=== PATIENT | male | born 1970 | race Caucasian/White ===

== ENCOUNTER 2020-01-14 21:23 | Inpatient (IN) | payer MEDICAID, OTHER ==
--- NOTE | 2020-01-14 22:53 | ED ---
Psych HPI - General Chief Complaint: Psychiatric Symptoms Stated Complaint: Mental Health Source: patient Mode of arrival: ambulatory - History of Present Illness Initial Comments: Angel a 49-year-old male who reports a history of bipolar. Patient reports that due to some changes in his life he no longer has primary care or psychiatric care states he ran out of his medications 2 weeks ago and has been unmedicated. Patient states that he feels that he is in a manic state. He states his thoughts are racing and he hasn't slept for 6 days. Patient does admit to drinking alcohol in an attempt to self medicate. Patient states he will hospital today because he knows he needs to be back on his medications. - Related Data Allergies Allergy/AdvReac Type Severity Reaction Status Date / Time No Known Allergies Allergy Verified 01/14/20 21:31 Review of Systems ROS Statement: Those systems with pertinent positive or pertinent negative responses have been documented in the HPI. ROS Other: All systems not noted in ROS Statement are negative. Past Medical History Past Medical History: No Reported History History of Any Multi-Drug Resistant Organisms: None Reported Past Surgical History: No Surgical Hx Reported Past Psychological History: Anxiety, Depression Smoking Status: Current every day smoker Past Alcohol Use History: Abuse, Daily General Exam - General Exam Comments Initial Comments: Physical Exam GENERAL: Patient is well-developed and well-nourished. Patient is nontoxic and well-hydrated and is in no distress. HENT: Normocephalic, Atraumatic. EYES: PERRL, EOMI PULMONARY: Unlabored respirations. CARDIOVASCULAR: RRR Warm and well perfused extremities ABDOMEN: Non-distended SKIN: No rashes or bruising : Deferred NEUROLOGIC: Alert and oriented Normal speech Normal gait MUSCULOSKELETAL: Moving all extremities with no apparent injury PSYCHIATRIC: Acute alejandro, no suicidal or homicidal ideations Limitations: no limitations Course Vital Signs 01/14/20 01/15/20 21:31 06:02 Temperature 98.9 F Pulse Rate 76 84 Respiratory 16 17 Rate Blood Pressure 116/78 142/80 O2 Sat by Pulse 96 98 Oximetry Medical Decision Making - Medical Decision Making Patient was seen and evaluated patient was slightly intoxicated but admitted to having a manic episode Upon sobriety patient was evaluated by the emergency psychiatric services nurse who agrees the patient requires inpatient admission as he will not safety plan. Labs were ordered for medical clearance Patient be transferred to psychiatric facility - Lab Data Result diagrams: 01/15/20 02:47 01/15/20 02:47 Lab Results 01/15/20 01/15/20 01/15/20 Range/Units 00:04 02:47 02:47 WBC 5.8 (3.8-10.6) k/uL RBC 4.69 (4.30-5.90) m/uL Hgb 14.9 (13.0-17.5) gm/dL Hct 45.4 (39.0-53.0) % MCV 96.7 (80.0-100.0) fL MCH 31.7 (25.0-35.0) pg MCHC 32.7 (31.0-37.0) g/dL RDW 13.2 (11.5-15.5) % Plt Count 291 (150-450) k/uL Neutrophils % 49 % Lymphocytes % 38 % Monocytes % 5 % Eosinophils % 5 % Basophils % 2 % Neutrophils # 2.8 (1.3-7.7) k/uL Lymphocytes # 2.2 (1.0-4.8) k/uL Monocytes # 0.3 (0-1.0) k/uL Eosinophils # 0.3 (0-0.7) k/uL Basophils # 0.1 (0-0.2) k/uL Sodium 133 L (137-145) mmol/L Potassium 3.8 (3.5-5.1) mmol/L Chloride 102 (98-107) mmol/L Carbon Dioxide 21 L (22-30) mmol/L Anion Gap 10 mmol/L BUN 17 (9-20) mg/dL Creatinine 1.05 (0.66-1.25) mg/dL Est GFR (CKD-EPI)AfAm >90 (>60 ml/min/1.73 sqM) Est GFR (CKD-EPI)NonAf 84 (>60 ml/min/1.73 sqM) Glucose 141 H (74-99) mg/dL Calcium 9.0 (8.4-10.2) mg/dL Total Bilirubin 0.6 (0.2-1.3) mg/dL AST 117 H (17-59) U/L ALT 162 H (4-49) U/L Alkaline Phosphatase 111 (38-126) U/L Total Protein 7.4 (6.3-8.2) g/dL Albumin 4.6 (3.5-5.0) g/dL Salicylates <1.0 mg/dL Urine Opiates Screen Not Detected (NotDetected) Ur Oxycodone Screen Not Detected (NotDetected) Urine Methadone Screen Not Detected (NotDetected) Ur Propoxyphene Screen Not Detected (NotDetected) Acetaminophen <10.0 ug/mL Ur Barbiturates Screen Not Detected (NotDetected) U Tricyclic Antidepress Not Detected (NotDetected) Ur Phencyclidine Scrn Not Detected (NotDetected) Ur Amphetamines Screen Not Detected (NotDetected) U Methamphetamines Scrn Not Detected (NotDetected) U Benzodiazepines Scrn Not Detected (NotDetected) Urine Cocaine Screen Not Detected (NotDetected) U Marijuana (THC) Screen Not Detected (NotDetected) Serum Alcohol <10 mg/dL Disposition Clinical Impression: Acute psychosis, Bipolar disorder Disposition: TRANSFER TO PSYCH HOSP/UNIT Condition: Serious Is patient prescribed a controlled substance at d/c from ED?: No Referrals: None,Stated [Primary Care Provider] - 1-2 days
[2020-01-15 00:31] LABS: Amphetamine Screen,Urine Not Detected (NotDetected); Barbiturate Screen,Urine Not Detected (NotDetected); Benzodiazepines Screen,Urine Not Detected (NotDetected); Cocaine Screen,Urine Not Detected (NotDetected); Methadone Screen, Urine Not Detected (NotDetected); Opiate Screen,Urine Not Detected (NotDetected); Oxycodone Screen, Urine Not Detected (NotDetected); Phencyclidine Screen,Urine Not Detected (NotDetected); Tricyclic Antidepressant,Urine Not Detected (NotDetected); Urn Cannabinoid Scrn Not Detected (NotDetected)
[2020-01-15] MEDS ORDERED: LORazepam 1 MG TAB PO STA ×2 (02:33→07:12)
[2020-01-15 02:55] LABS: Basophils # (A) 0.1 k/uL (0-0.2); Basophils % (A) 2 %; Eosinophils # (A) 0.3 k/uL (0-0.7); Eosinophils % (A) 5 %; HCT 45.4 % (39.0-53.0); HGB 14.9 gm/dL (13.0-17.5); Lymphocytes # (A) 2.2 k/uL (1.0-4.8); Lymphocytes % (A) 38 %; MCH 31.7 pg (25.0-35.0); MCHC 32.7 g/dL (31.0-37.0); MCV 96.7 fL (80.0-100.0); Mean Platelet Volume 6.8; Monocytes # (A) 0.3 k/uL (0-1.0); Monocytes % (A) 5 %; Neutrophils # (A) 2.8 k/uL (1.3-7.7); Neutrophils % (A) 49 %; Platelet Count 291 k/uL (150-450); RBC 4.69 m/uL (4.30-5.90); RDW 13.2 % (11.5-15.5); WBC 5.8 k/uL (3.8-10.6)
[2020-01-15 03:04] LABS: ALT 162 U/L (4-49); AST 117 U/L (17-59); Acetaminophen <10.0 ug/mL; African American GFR (CKD) >90 (>60 ml/min/1.73 sqM); Albumin 4.6 g/dL (3.5-5.0); Alcohol <10 mg/dL; Alkaline Phosphatase 111 U/L (38-126); Anion Gap 10 mmol/L; Blood Urea Nitrogen 17 mg/dL (9-20); Carbon Dioxide 21 mmol/L (22-30); Chloride 102 mmol/L (98-107); Glucose 141 mg/dL (74-99); Non-African American GFR(CKD) 84 (>60 ml/min/1.73 sqM); Potassium 3.8 mmol/L (3.5-5.1); Salicylate <1.0 mg/dL; Sodium 133 mmol/L (137-145); Total Bilirubin 0.6 mg/dL (0.2-1.3); Total Protein 7.4 g/dL (6.3-8.2)
[2020-01-15] MEDS ORDERED: MAG HYDROX/AL HYDROX/SIMETH 30 ML CUP PO PRN (14:17)
[2020-01-15] MEDS ORDERED: MAGNESIUM HYDROXIDE 2,400 MG/10 ML CUP PO PRN (14:17)
[2020-01-15] MEDS ORDERED: ZIPRASIDONE 20 MG VIAL IM PRN (14:17)
[2020-01-15] MEDS ORDERED: ACETAMINOPHEN TAB 325 MG TAB PO PRN (14:17)
[2020-01-15] MEDS: LORazepam 1 MG TAB PO PRN (15:11)
--- NOTE | 2020-01-15 16:31 | P.HPMEDMHU ---
History of Present Illness H&P Date: 01/15/20 Chief Complaint: Medical Co-management 49-year-old overweight man with past medical history of polysubstance abuse, bipolar disorder presented with depression, anxiety. He was admitted to the mental health unit for titration of medication; medicine was consulted by psychiatry for medical management. Patient's review of systems was positive for anxiety/depression. Negative for fevers, chills, nausea, vomiting, chest pain, palpitations, significant, shortness of breath, abdominal pain, dysuria, dyschezia, nocturia, hematochezia, melena, numbness/weakness, visual changes, hearing changes. Patient is hemodynamically stable, labs were reviewed and were unremarkable ex cept for mild hyponatremia. Review of Systems All Systems reviewed and pertinent positives and negatives noted in HPI, all other symptoms are negative Past Medical History Past Medical History: No Reported History History of Any Multi-Drug Resistant Organisms: None Reported Past Surgical History: No Surgical Hx Reported Past Psychological History: Anxiety, Depression Smoking Status: Current every day smoker Past Alcohol Use History: Abuse, Daily Medications and Allergies Home Medications Medication Instructions Recorded Confirmed Type Escitalopram [Lexapro] 10 mg PO DAILY 01/15/20 01/15/20 History Lurasidone [Latuda] 40 mg PO DAILY 01/15/20 01/15/20 History OLANZapine [ZyPREXA] 5 mg PO HS 01/15/20 01/15/20 History buPROPion HCL [Wellbutrin XL] 300 mg PO DAILY 01/15/20 01/15/20 History Allergies Allergy/AdvReac Type Severity Reaction Status Date / Time No Known Allergies Allergy Verified 01/15/20 11:03 Physical Exam Osteopathic Statement: *. No significant issues noted on an osteopathic structural exam other than those noted in the History and Physical/Consult. Vitals: Vital Signs Temp Pulse Resp BP BP Pulse Ox 01/15/20 15:11 97.7 F 14 132/102 94 L 01/15/20 06:02 84 17 142/80 98 01/14/20 21:31 98.9 F 76 16 116/78 96 Gen: awake, alert HEENT: normocephalic, atraumatic, good hearing acuity, moist mucous membranes Resp: CTAB, good air exchange, no accessory muscle use, no wheezes, crackles, rhonchi CVS: good distal perfusion x 4, RRR, no murmurs, clicks, gallops GI: soft, NTTP, ND : no SPT, no CVAT, hopper catheter [IS/NOT] present MSK: no pitting edema, no clubbing Neuro: non-focal, no sensory deficits, appropriate tone Psych: cooperative, euthymic mood Cranial Nerve Examination - Cranial Nerves Cranial Nerve II- Optic: Intact Cranial Nerve III- Oculomotor: Intact Cranial Nerve IV- Trochlear: Intact Cranial Nerve V- Trigeminal: Intact Cranial Nerve - Abducens: Intact Cranial Nerve VII- Facial: Intact Cranial Nerve VIII- Auditory: Intact Cranial Nerve IX- Glossopharyngeal: Intact Cranial Nerve X- Vagus: Intact Cranial Nerve XI- Accessory: Intact Cranial Nerve XII- Hypoglossal: Intact Results CBC & Chem 7: 01/15/20 02:47 01/15/20 02:47 Labs: Abnormal Lab Results - Last 24 Hours (Table) 01/15/20 Range/Units 02:47 Sodium 133 L (137-145) mmol/L Carbon Dioxide 21 L (22-30) mmol/L Glucose 141 H (74-99) mg/dL AST 117 H (17-59) U/L ALT 162 H (4-49) U/L Assessment and Plan Assessment: 1. Polysubstance abuse 2. Overweight 3. Bipolar disorder with alejandro 4. Alcohol withdrawal syndrome 5. Alcohol abuse disorder 49-year-old overweight man with past medical history of alcohol abuse disorder, polysubstance abuse presents for medication titration for bipolar disorder; medicine consulted for medical management. Plan: thiamine, folate, MVI ativan PRN for withdrawal per [facility] oversight recommend weight loss planning nicotine patch PRN Rest of care/counseling per psychiatry/MHU Thank you for allowing us to participate in this patient's care, please call consulting provider if further questions/concerns.
[2020-01-15] MEDS: OLANZapine 5 MG TAB PO SCH (20:21)
[2020-01-15] MEDS: NICOTINE 14MG/24HR PATCH TRANSDERM SCH (20:25)
[2020-01-15] MEDS: ESCITALOPRAM 10 MG TAB PO SCH (20:25)
[2020-01-16] MEDS: FOLIC ACID 1 MG TAB PO SCH (08:08)
[2020-01-16] MEDS: LORazepam 1 MG TAB PO PRN ×2 (08:08→16:04)
[2020-01-16] MEDS: ESCITALOPRAM 10 MG TAB PO SCH (08:08)
[2020-01-16] MEDS: NICOTINE 14MG/24HR PATCH TRANSDERM SCH (08:08)
[2020-01-16] MEDS: THIAMINE 100 MG TAB PO SCH (08:08)
[2020-01-16] MEDS: MULTIVITAMINS, THERA 1 EACH TAB PO SCH (08:08)
--- NOTE | 2020-01-16 11:33 | P.HP ---
Psychiatric H&P - . H&P Date: 01/16/20 History & Physical: Allergies Allergy/AdvReac Type Severity Reaction Status Date / Time No Known Allergies Allergy Verified 01/15/20 11:03 Vital Signs Temp 98.3 F 01/16/20 06:27 Pulse 75 01/16/20 06:27 Resp 16 01/16/20 06:27 BP 150/66 01/16/20 06:27 Pulse Ox 94 L 01/15/20 15:11 Laboratory Last Values WBC 5.8 k/uL (3.8-10.6) 01/15/20 02:47 RBC 4.69 m/uL (4.30-5.90) 01/15/20 02:47 Hgb 14.9 gm/dL (13.0-17.5) 01/15/20 02:47 Hct 45.4 % (39.0-53.0) 01/15/20 02:47 MCV 96.7 fL (80.0-100.0) 01/15/20 02:47 MCH 31.7 pg (25.0-35.0) 01/15/20 02:47 MCHC 32.7 g/dL (31.0-37.0) 01/15/20 02:47 RDW 13.2 % (11.5-15.5) 01/15/20 02:47 Plt Count 291 k/uL (150-450) 01/15/20 02:47 Neutrophils % 49 % 01/15/20 02:47 Lymphocytes % 38 % 01/15/20 02:47 Monocytes % 5 % 01/15/20 02:47 Eosinophils % 5 % 01/15/20 02:47 Basophils % 2 % 01/15/20 02:47 Neutrophils # 2.8 k/uL (1.3-7.7) 01/15/20 02:47 Lymphocytes # 2.2 k/uL (1.0-4.8) 01/15/20 02:47 Monocytes # 0.3 k/uL (0-1.0) 01/15/20 02:47 Eosinophils # 0.3 k/uL (0-0.7) 01/15/20 02:47 Basophils # 0.1 k/uL (0-0.2) 01/15/20 02:47 Sodium 133 mmol/L (137-145) L 01/15/20 02:47 Potassium 3.8 mmol/L (3.5-5.1) 01/15/20 02:47 Chloride 102 mmol/L (98-107) 01/15/20 02:47 Carbon Dioxide 21 mmol/L (22-30) L 01/15/20 02:47 Anion Gap 10 mmol/L 01/15/20 02:47 BUN 17 mg/dL (9-20) 01/15/20 02:47 Creatinine 1.05 mg/dL (0.66-1.25) 01/15/20 02:47 Est GFR (CKD-EPI)AfAm >90 (>60 ml/min/1.73 sqM) 01/15/20 02:47 Est GFR (CKD-EPI)NonAf 84 (>60 ml/min/1.73 sqM) 01/15/20 02:47 Glucose 141 mg/dL (74-99) H 01/15/20 02:47 Calcium 9.0 mg/dL (8.4-10.2) 01/15/20 02:47 Total Bilirubin 0.6 mg/dL (0.2-1.3) 01/15/20 02:47 AST 117 U/L (17-59) H 01/15/20 02:47 ALT 162 U/L (4-49) H 01/15/20 02:47 Alkaline Phosphatase 111 U/L (38-126) 01/15/20 02:47 Total Protein 7.4 g/dL (6.3-8.2) 01/15/20 02:47 Albumin 4.6 g/dL (3.5-5.0) 01/15/20 02:47 Triglycerides 130 mg/dL (<150) 01/15/20 02:47 Cholesterol 288 mg/dL (<200) H 01/15/20 02:47 LDL Cholesterol, Calc 182 mg/dL (0-99) H 01/15/20 02:47 HDL Cholesterol 80 mg/dL (40-60) H 01/15/20 02:47 TSH 1.560 mIU/L (0.465-4.680) 01/15/20 02:47 Salicylates <1.0 mg/dL 01/15/20 02:47 Urine Opiates Screen Not Detected (NotDetected) 01/15/20 00:04 Ur Oxycodone Screen Not Detected (NotDetected) 01/15/20 00:04 Urine Methadone Screen Not Detected (NotDetected) 01/15/20 00:04 Ur Propoxyphene Screen Not Detected (NotDetected) 01/15/20 00:04 Acetaminophen <10.0 ug/mL 01/15/20 02:47 Ur Barbiturates Screen Not Detected (NotDetected) 01/15/20 00:04 U Tricyclic Antidepress Not Detected (NotDetected) 01/15/20 00:04 Ur Phencyclidine Scrn Not Detected (NotDetected) 01/15/20 00:04 Ur Amphetamines Screen Not Detected (NotDetected) 01/15/20 00:04 U Methamphetamines Scrn Not Detected (NotDetected) 01/15/20 00:04 U Benzodiazepines Scrn Not Detected (NotDetected) 01/15/20 00:04 Urine Cocaine Screen Not Detected (NotDetected) 01/15/20 00:04 U Marijuana (THC) Screen Not Detected (NotDetected) 01/15/20 00:04 Serum Alcohol <10 mg/dL 01/15/20 02:47 01/16/20 11:03 IDENTIFYING DATA: Patient is a 49-year-old male who currently lives with his parents in a house is single has no kids and is unemployed. HPI: Patient presented to the hospital initially with complaints of being in a "manic state" according to ER report. Patient had complained that he had been feeling depressed and is having changes in his life and has been off of his medications as he had "ran out" for the past 2 weeks. patient apparently apparently up reported that he was feeling suicidal in the ER. He reportedly was having racing thoughts poor sleep for the past 6 days. Patient also reported having an increase in his drinking lately and had increase in his LFTs, sodium was 133 and UDS was negative on initial labs. Patient was seen today by remote mortgage underwriter and appeared to be calm and directable during the interview. He states that his "life is all messed up". He claims that he has been dealing with several legal problems and owing money to people and [employer] card companies recently and states that he has been using his [employer] savings account to pay them. He states that he has had 3 DUIs in the past 3 months and states that the legal charges are still pending. He claims that within the past 4 months he has been drinking more heavily about 8-10 beers per day. He states that "this alcohol thing is new for me I'm not normally an alcoholic". He states that his sleep is "okay" and denied any withdrawal symptoms at this time. He claims that he was previously in rehab at [place] 3 weeks ago and completed the program however states that when he was released "I had no interest in quitting [facility]" and relapsed. he states that his mood now is depressed. Patient denies any suicidal or homicidal ideations intent or plan. At this time patient denies any auditory or visual hallucinations. Patient admits to using alcohol daily as listed above. He denies any other recreational drug useand admits using cigarettes daily. PAST PSYCHIATRIC HISTORY: Patient states that he has a history of bipolar depression. patient was previously on olanzapine and Lexapro however ran out for the past 2 weeks. he states that he has been hospitalized approximately 6 times in the past 4 times in [place] and once at [place] and the last admission was at [facility] 3 months ago. [Patient denies any psychiatric outpatient follow- up.] [Patient denies any history of suicide attempts in the past.] PMH:denies ALLERGIES: [as per EMR] CHEMICAL DEPENDENCY HISTORY: [as per HPI] FAMILY PSYCHIATRIC/SUBSTANCE USE HISTORY: states that his aunt has bipolar disorder. SOCIAL HISTORY: Patient was born and raised in the [place] and claims that he has a bachelor's degree in zoology. He states that he completed high school. 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 He currently lives with his parents is single and has no kids. MENTAL STATUS EXAM: General Appearance: Patient appears to be stated age is alert, directable, and attempts to cooperate. Patient appears to have poor hygiene and grooming. Behavior: Patient is seated without any agitated behavior. attempts to cooperate. Irritable at times. Speech: Patient's speech is [fluent and nonpressured.] Mood/Affect: Patient reports their mood is depressed, affect is congruent and constricted. Suicidality/Homicidality: Patient denies having any homicidal ideation intent or plan. Denies any suicidal ideations intent or plan Perceptions: Patient denies any visual hallucinations [and denies any auditory hallucinations] Though content/process: There is no evidence of any delusional thought content and thought process is linear and goal-directed. Memory and concentration: AOX3, grossly intact for the purposes of this session. Can spell "WORLD" backwards Judgment and insight: poor STRENGTHS/WEAKNESSES: strength is that patient is resilient. Weakness is that patient has poor judgment and is impulsive INTELLECT: average IMPRESSIONS: bipolar disorder, currently depressed Alcohol use disorder, currently in withdrawal Nicotine dependence PLAN: -Patient is admitted under voluntary status to MHU for stabilization of psychiatric symptoms and safety. Patient signed adult voluntary form and medication consent and is placed in patient's chart. -Medications : Will start patient on Zyprexa 5 mg daily at bedtime for mood stabilization/insomnia. Patient is also agreeable to start Prozac 20 mg daily for mood -Ativan and Geodon PRN for agitation/aggression -Started thiamine, MVM for etoh use -CIWA protocol with Ativan PRN for ETOH withdrawal -Patient was counselled on substance abuse and desired to cut back on use -Patient was informed of the risks, benefits and side effects of the medication and patient verbally consented to taking the medications. Patient signed med consent form and was placed in chart. -Internal Medicine consult to perform medical evaluation and physical. -NRT - nicotine patch -SW on board for discharge planning. Encourage patient to participate in groups to work on coping skills. patient claims that he does not want to go to rehab upon discharge and would rather be discharged to a sober living house. 01/16/20 11:28
[2020-01-16] MEDS: FLUoxetine HCL 20 MG CAP PO SCH (12:46)
[2020-01-16 15:45] LABS: Hemoglobin A1C 5.5 % (4.0-6.0)
[2020-01-16] MEDS: OLANZapine 5 MG TAB PO SCH (20:09)
[2020-01-17] MEDS: LORazepam 1 MG TAB PO PRN ×3 (00:45→21:18)
[2020-01-17 00:46] VITALS: RESP 16
[2020-01-17] MEDS: FLUoxetine HCL 20 MG CAP PO SCH (09:19)
[2020-01-17] MEDS: THIAMINE 100 MG TAB PO SCH (09:19)
[2020-01-17] MEDS: MULTIVITAMINS, THERA 1 EACH TAB PO SCH (09:19)
[2020-01-17] MEDS: NICOTINE 14MG/24HR PATCH TRANSDERM SCH (09:19)
[2020-01-17] MEDS: FOLIC ACID 1 MG TAB PO SCH (09:19)
--- NOTE | 2020-01-17 10:40 | P.PN ---
Progress Note - Text Progress Note Date: 01/17/20 Interval History: Patient was seen wandering the hallways and was directable and agreeable to marcia vidales with contract writer in the office. Patient appeared to have mild improvement in his hygiene and grooming today. He also appeared to have good improvement in his affect and states that he is doing "a bit better". He claims that he feels the medication has been helping him with sleep and states that he was able to sleep approximately 7-8 hours last night. He states that he does feel tired this morning and was yawning at times during the interview. He claims that he has been working on "meditation in my room" and has been going to some groups. He claims that he still wants to go to a sober living house and wants to have that arranged. He denied any changes in his appetite. At this time patient denies any suicidal or homical ideations, intent or plan. Patient denies any auditory, visual hallucinations and denies any paranoia or delusions. Patient denies any side effects from the medications and has been compliant with meds. Mental Status Exam: General Appearance: Patient appears to be stated age is alert, directable, and attempts to cooperate. Patient appears to have improving hygiene and grooming. Behavior: Patient is seated without any agitated behavior. attempts to cooperate. Less irritable today. Speech: Patient's speech is fluent and nonpressured. Mood/Affect: Patient reports their mood is depressed, affect is congruent and constricted. Suicidality/Homicidality: Patient denies having any homicidal ideation intent or plan. Denies any suicidal ideations intent or plan Perceptions: Patient denies any visual hallucinations and denies any auditory hallucinations Though content/process: There is no evidence of any delusional thought content and thought process is linear and goal-directed. Memory and concentration: AOX3, grossly intact for the purposes of this session. Judgment and insight: Improving mildly Assessment bipolar disorder, currently depressed Alcohol use disorder, currently in withdrawal Nicotine dependence Plan: -Patient continues to meet criteria for inpatient psychiatric admission for symptom stabilization and safety. Patient has signed adult voluntary form and medication consent and was placed in patient's chart. -Medications: Continue with Zyprexa 5 mg nightly for mood stabilization/insomnia, increased Prozac to 40 mg daily for mood. -Continue with thiamine, MVM for etoh use -CIWA protocol with Ativan PRN for ETOH withdrawal. Vital signs reviewed. -When necessary Ativan and Geodon for agitation/aggression. -NRT - nicotine patch -SW on board for discharge planning. Encouraged the patient to participate in milieu. Patient will likely be discharged back to his parents house to gather his belongings and today social work to help make arrangements for sober living house. Likely discharge tomorrow.
[2020-01-17] MEDS: OLANZapine 5 MG TAB PO SCH (21:18)
[2020-01-18 06:44] VITALS: BP 123/77; PULSE 76; TEMP 98.6
[2020-01-18] MEDS: NICOTINE 14MG/24HR PATCH TRANSDERM SCH (09:00)
[2020-01-18] MEDS: LORazepam 1 MG TAB PO PRN (09:00)
[2020-01-18] MEDS: FOLIC ACID 1 MG TAB PO SCH (09:00)
[2020-01-18] MEDS: THIAMINE 100 MG TAB PO SCH (09:00)
[2020-01-18] MEDS ORDERED: FLUoxetine HCL 20 MG CAP PO SCH (09:00)
[2020-01-18] MEDS: MULTIVITAMINS, THERA 1 EACH TAB PO SCH (09:01)
--- NOTE | 2020-01-18 10:03 | P.DS ---
Providers Date of admission: 01/15/20 14:00 Expected date of discharge: 01/18/20 Attending physician: Raymond Alberts MD Consults: 01/15/20 14:17 Consult Physician Routine Consulting Provider: [facility] Consult Reason/Comments: H&P and medical Do you want consulting provider notified?: Yes Primary care physician: Stated None - Discharge Diagnosis(es) (1) Bipolar disorder current episode depressed Current Visit: Yes Status: Acute Priority: High (2) Alcohol use disorder, moderate, dependence Current Visit: Yes Status: Acute Priority: Medium (3) Nicotine dependence Current Visit: Yes Status: Acute Priority: Low Hospital Course: Admission HPI: Patient is a 49-year-old male who currently lives with his parents in a house is single has no kids and is unemployed. Patient presented to the hospital initially with complaints of being in a "manic state" according to ER report. Patient had complained that he had been feeling depressed and is having changes in his life and has been off of his medications as he had "ran out" for the past 2 weeks. patient apparently apparently up reported that he was feeling suicidal in the ER. He reportedly was having racing thoughts poor sleep for the past 6 days. Patient also reported having an increase in his drinking lately and had increase in his LFTs, sodium was 133 and UDS was negative on initial labs. Patient was seen today by creative writer and appeared to be calm and directable during the interview. He states that his "life is all messed up". He claims that he has been dealing with several legal problems and owing money to people and credit card companies recently and states that he has been using his snf savings account to pay them. He states that he has had 3 DUIs in the past 3 months and states that the legal charges are still pending. He claims that within the past 4 months he has been drinking more heavily about 8-10 beers per day. He states that "this alcohol thing is new for me I'm not normally an alcoholic". He states that his sleep is "okay" and denied any withdrawal symptoms at this time. He claims that he was previously in rehab at [place] 3 weeks ago and completed the program however states that when he was released "I had no interest in quitting drinking" and relapsed. he states that his mood now is depressed. Patient denies any suicidal or homicidal ideations intent or plan. At this time patient denies any auditory or visual hallucinations. Patient admits to using alcohol daily as listed above. He denies any other recreational drug useand admits using cigarettes daily. Hospital course: Upon admission to the unit patient was initially depressed and anxious and going through alcohol withdrawal. Patient was placed on CIWA protocol with when necessary Ativan and vital signs were monitored for alcohol withdrawal. Patient was however directable and agreeable to commence treatment. Patient got along well with other patients on the unit and followed unit protocol. Patient was compliant with the medications and denied any side effects throughout hospital course. Patient was started on Zyprexa and titrated up to a dose of 5 mg nightly for mood stabilization/insomnia, Prozac was also started and titrated up to dose of 40 mg daily for mood. Patient spoke of his stressors and engaged in therapy both group and individual. Patient was also seen by medical team for history and physical exam. Throughout the course of the hospitalization patient gradually improved with regards to mood, anxiety, sleep and became future oriented with improved insight and judgment. On the day of discharge patient denied any suicidal or homicidal ideations intent or plan denied any auditory or visual hallucinations. Patient endorsed wanting to live for his sobriety and his future. The patient denied any access to guns or weapons. Patient denied any paranoia and did not endorse any delusions. Patient does have a significant history of substance abuse and was counseled on abstaining from all substances including alcohol and marijuana. Patient was offered however declined inpatient substance-abuse rehab. Patient was however interested in going to a sober house and had a bed at [facility] set up for 01/19/2020 and plans to gather his belongings at home before going there tomorrow. Patient was also counseled on the medications and need for regular compliance and was encouraged to follow-up with their outpatient appointment for mental health and also for primary care. Prior to discharge a family meeting will be arranged by social media marketing analyst to answer any questions and ensure safety upon discharge. Mental status exam: General Appearance: Patient appears to be stated age is alert, pleasant, and cooperative. Patient is in no acute distress and has improved hygiene and grooming Behavior: Patient is calmly seated without any agitated behavior. Speech: Patient's speech is fluent and nonpressured. Mood/Affect: Patient reports their mood is "much better", affect is congruent and euthymic. Suicidality/Homicidality: Patient denies having any suicidal or homicidal ideation intent or plan. Perceptions: Patient denies any auditory or visual hallucinations. Though content/process: There is no evidence of any delusional thought content and thought process is linear and goal-directed. more future oriented and focused on his sobriety Memory and concentration: AOX3, grossly intact for the purposes of this session. Can spell "WORLD" backwards correctly. Judgment and insight: Improved with guarded prognosis Impression: Bipolar disorder, currently depressed Alcohol use disorder Nicotine dependence Plan: -Continue with discharge today as patient has improved and stabilized psychiatrically and is not currently an imminent threat to himself and/or others. Patient will remain at chronically elevated risk for harm to self and/or others due to his impulsivity and polysubstance abuse. -Continue medications: Continue with Zyprexa 5 mg nightly for mood stabilization/insomnia, Prozac 40 mg daily for mood. -Patient was counseled on the need for medication compliance and appropriate follow-up at mental health and also primary care for medical issues. Patient verbalized understanding and agreed. -Social work to arrange for and conduct family meeting to ensure safety upon discharge and answer any questions/concerns. Social work also to arrange for patients follow up appointments with [facility] for psychiatric care along with follow up with primary care provider. -Patient counseled on abstaining from recreational drugs and marijuana and alcohol. Was informed/educated on the adverse effects on their physical and mental health. Patient verbally agreed and understood. Patient was offered substance abuse treatment however declined at this time. Patient does have a bed at [facility] set up for 01/19/2020 and plans to gather his belongings at home before going there tomorrow. -Patient was instructed to return to the hospital or seek immediate medical care if their psychiatric or medical symptoms do worsen or reoccur. Allergies Allergy/AdvReac Type Severity Reaction Status Date / Time No Known Allergies Allergy Verified 01/15/20 11:03 Laboratory Results WBC 5.8 k/uL (3.8-10.6) 01/15/20 02:47 RBC 4.69 m/uL (4.30-5.90) 01/15/20 02:47 Hgb 14.9 gm/dL (13.0-17.5) 01/15/20 02:47 Hct 45.4 % (39.0-53.0) 01/15/20 02:47 MCV 96.7 fL (80.0-100.0) 01/15/20 02:47 MCH 31.7 pg (25.0-35.0) 01/15/20 02:47 MCHC 32.7 g/dL (31.0-37.0) 01/15/20 02:47 RDW 13.2 % (11.5-15.5) 01/15/20 02:47 Plt Count 291 k/uL (150-450) 01/15/20 02:47 Neutrophils % 49 % 01/15/20 02:47 Lymphocytes % 38 % 01/15/20 02:47 Monocytes % 5 % 01/15/20 02:47 Eosinophils % 5 % 01/15/20 02:47 Basophils % 2 % 01/15/20 02:47 Neutrophils # 2.8 k/uL (1.3-7.7) 01/15/20 02:47 Lymphocytes # 2.2 k/uL (1.0-4.8) 01/15/20 02:47 Monocytes # 0.3 k/uL (0-1.0) 01/15/20 02:47 Eosinophils # 0.3 k/uL (0-0.7) 01/15/20 02:47 Basophils # 0.1 k/uL (0-0.2) 01/15/20 02:47 Sodium 133 mmol/L (137-145) L 01/15/20 02:47 Potassium 3.8 mmol/L (3.5-5.1) 01/15/20 02:47 Chloride 102 mmol/L (98-107) 01/15/20 02:47 Carbon Dioxide 21 mmol/L (22-30) L 01/15/20 02:47 Anion Gap 10 mmol/L 01/15/20 02:47 BUN 17 mg/dL (9-20) 01/15/20 02:47 Creatinine 1.05 mg/dL (0.66-1.25) 01/15/20 02:47 Est GFR (CKD-EPI)AfAm >90 (>60 ml/min/1.73 sqM) 01/15/20 02:47 Est GFR (CKD-EPI)NonAf 84 (>60 ml/min/1.73 sqM) 01/15/20 02:47 Glucose 141 mg/dL (74-99) H 01/15/20 02:[address] Glu mg/dL 111 01/15/20 02:47 Hemoglobin A1c 5.5 % (4.0-6.0) 01/15/20 02:47 Calcium 9.0 mg/dL (8.4-10.2) 01/15/20 02:47 Total Bilirubin 0.6 mg/dL (0.2-1.3) 01/15/20 02:47 AST 117 U/L (17-59) H 01/15/20 02:47 ALT 162 U/L (4-49) H 01/15/20 02:47 Alkaline Phosphatase 111 U/L (38-126) 01/15/20 02:47 Total Protein 7.4 g/dL (6.3-8.2) 01/15/20 02:47 Albumin 4.6 g/dL (3.5-5.0) 01/15/20 02:47 Triglycerides 130 mg/dL (<150) 01/15/20 02:47 Cholesterol 288 mg/dL (<200) H 01/15/20 02:47 LDL Cholesterol, Calc 182 mg/dL (0-99) H 01/15/20 02:47 HDL Cholesterol 80 mg/dL (40-60) H 01/15/20 02:47 TSH 1.560 mIU/L (0.465-4.680) 01/15/20 02:47 Salicylates <1.0 mg/dL 01/15/20 02:47 Urine Opiates Screen Not Detected (NotDetected) 01/15/20 00:04 Ur Oxycodone Screen Not Detected (NotDetected) 01/15/20 00:04 Urine Methadone Screen Not Detected (NotDetected) 01/15/20 00:04 Ur Propoxyphene Screen Not Detected (NotDetected) 01/15/20 00:04 Acetaminophen <10.0 ug/mL 01/15/20 02:47 Ur Barbiturates Screen Not Detected (NotDetected) 01/15/20 00:04 U Tricyclic Antidepress Not Detected (NotDetected) 01/15/20 00:04 Ur Phencyclidine Scrn Not Detected (NotDetected) 01/15/20 00:04 Ur Amphetamines Screen Not Detected (NotDetected) 01/15/20 00:04 U Methamphetamines Scrn Not Detected (NotDetected) 01/15/20 00:04 U Benzodiazepines Scrn Not Detected (NotDetected) 01/15/20 00:04 Urine Cocaine Screen Not Detected (NotDetected) 01/15/20 00:04 U Marijuana (THC) Screen Not Detected (NotDetected) 01/15/20 00:04 Serum Alcohol <10 mg/dL 01/15/20 02:47 Vital Signs Temp 98.6 F 01/18/20 06:28 Pulse 76 01/18/20 06:28 Resp 16 01/18/20 06:28 BP 123/77 01/18/20 06:28 Pulse Ox 98 01/17/20 09:17 Patient Condition at Discharge: Serious Plan - Discharge Summary New Discharge Prescriptions: New Folic Acid 1 mg PO DAILY 30 Days tab Nicotine 14Mg/24Hr Patch [Habitrol] 1 patch TRANSDERM DAILY 14 Days patch Multivitamins, Thera [Multivitamin (formulary)] 1 each PO DAILY 30 Days tab FLUoxetine HCL [PROzac] 40 mg PO DAILY 30 Days cap Acetaminophen Tab [Tylenol] 650 mg PO Q4HR PRN tab PRN Reason: Pain/Discomfort Thiamine [Vitamin B-1] 100 mg PO DAILY 30 Days tab OLANZapine [ZyPREXA] 5 mg PO HS 30 Days tab Discontinued OLANZapine [ZyPREXA] 5 mg PO HS Lurasidone [Latuda] 40 mg PO DAILY buPROPion HCL [Wellbutrin XL] 300 mg PO DAILY Escitalopram [Lexapro] 10 mg PO DAILY Discharge Medication List Acetaminophen Tab [Tylenol] 650 mg PO Q4HR PRN tab 01/18/20 [Rx] FLUoxetine HCL [PROzac] 40 mg PO DAILY 30 Days cap 01/18/20 [Rx] Folic Acid 1 mg PO DAILY 30 Days tab 01/18/20 [Rx] Multivitamins, Thera [Multivitamin (formulary)] 1 each PO DAILY 30 Days tab 01/18/20 [Rx] Nicotine 14Mg/24Hr Patch [Habitrol] 1 patch TRANSDERM DAILY 14 Days patch 01/18/20 [Rx] OLANZapine [ZyPREXA] 5 mg PO HS 30 Days tab 01/18/20 [Rx] Thiamine [Vitamin B-1] 100 mg PO DAILY 30 Days tab 01/18/20 [Rx] Follow up Appointment(s)/Referral(s): None,Stated [Primary Care Provider] - 1-2 days Activity/Diet/Wound Care/Special Instructions: Activity and diet as tolerated. Avoid the use of street drugs and alcohol. Take all medications as prescribed. When you are in need of refills on your medicat ions please contact your medical provider and/or outpatient psychiatrist to have this done. Please go to scheduled outpatient appointment for aftercare treatment. If symptoms return or become worse, call the crisis line at and/or go to the nearest emergency room for evaluation. Discharge Disposition: HOME SELF-CARE
[2020-01-18 10:16] LABS: ALT 148 U/L (4-49); AST 111 U/L (17-59); African American GFR (CKD) >90 (>60 ml/min/1.73 sqM); Albumin 4.2 g/dL (3.5-5.0); Alkaline Phosphatase 98 U/L (38-126); Anion Gap 6 mmol/L; Blood Urea Nitrogen 14 mg/dL (9-20); Calcium 9.1 mg/dL (8.4-10.2); Carbon Dioxide 24 mmol/L (22-30); Chloride 107 mmol/L (98-107); Glucose 151 mg/dL (74-99); Non-African American GFR(CKD) 87 (>60 ml/min/1.73 sqM); Potassium 4.2 mmol/L (3.5-5.1); Sodium 137 mmol/L (137-145); Total Bilirubin 0.6 mg/dL (0.2-1.3); Total Protein 6.8 g/dL (6.3-8.2)
== END 2020-01-18 12:47 | disposition home or self-care (01) | DRG 885 ==
LOC: EC 21:23 → 3MHU 01-15 14:00
PROVIDERS: ADMIT Psychiatry & Neurology Psychiatry; ATTEND Psychiatry & Neurology Psychiatry
DX: F31.9 Bipolar disorder, unspecified (principal); F10.239 Alcohol dependence with withdrawal, unspecified; R45.851 Suicidal ideations; F23 Brief psychotic disorder; F17.210 Nicotine dependence, cigarettes, uncomplicated; F41.9 Anxiety disorder, unspecified; G47.00 Insomnia, unspecified; Z79.899 Other long term (current) drug therapy; Z65.3 Problems related to other legal circumstances; Z81.8 Family history of other mental and behavioral disorders; Z56.0 Unemployment, unspecified; E66.3 Overweight; Z68.28 Body mass index [BMI] 28.0-28.9, adult; F19.10 Other psychoactive substance abuse, uncomplicated; Z59.9 Problem related to housing and economic circumstances, unspecified
CPT/HCPCS: 36415; 80053; 80061; 80306; 80320; 80329; 82075; 83036; 83520; 84443; 85025; 99285

== ENCOUNTER 2020-03-22 13:22 | Inpatient (IN) | payer MEDICAID, OTHER ==
--- NOTE | 2020-03-22 14:16 | ED ---
General Adult HPI - General Source: patient, RN notes reviewed, old records reviewed Mode of arrival: ambulatory Limitations: no limitations <Derian Navarro - Last Filed: 03/22/20 14:50> <Suni Yuen - Last Filed: 03/22/20 16:28> - General Chief complaint: Psychiatric Symptoms Stated complaint: EPS eval Time Seen by Provider: 03/22/20 13:25 - History of Present Illness Initial comments: This is a 49-year-old male who presents to the emergency department complaining of being suicidal. Patient states he was at [facility] and he was here for alcoholism. Patient states started 2 days. Patient states because of the withdrawals he is beginning to have thoughts of suicide and he was thinking is signing out and kill himself. Patient states he was going to buy some illegal drugs an overdose. Patient denies any physical complaints today. (Derian Navarro) - Related Data Previous Rx's Medication Instructions Recorded Acetaminophen Tab [Tylenol] 650 mg PO Q4HR PRN tab 01/18/20 FLUoxetine HCL [PROzac] 40 mg PO DAILY 30 Days cap 01/18/20 Folic Acid 1 mg PO DAILY 30 Days tab 01/18/20 Multivitamins, Thera [Multivitamin 1 each PO DAILY 30 Days tab 01/18/20 (formulary)] Nicotine 14Mg/24Hr Patch [Habitrol] 1 patch TRANSDERM DAILY 14 Days 01/18/20 patch OLANZapine [ZyPREXA] 5 mg PO HS 30 Days tab 01/18/20 Thiamine [Vitamin B-1] 100 mg PO DAILY 30 Days tab 01/18/20 Allergies Allergy/AdvReac Type Severity Reaction Status Date / Time No Known Allergies Allergy Verified 03/22/20 13:28 Review of Systems ROS Other: All systems not noted in ROS Statement are negative. <Derian Navarro - Last Filed: 03/22/20 14:50> ROS Other: All systems not noted in ROS Statement are negative. <Suni Yuen - Last Filed: 03/22/20 16:28> ROS Statement: Those systems with pertinent positive or pertinent negative responses have been documented in the HPI. Past Medical History Past Medical History: No Reported History History of Any Multi-Drug Resistant Organisms: None Reported Past Surgical History: No Surgical Hx Reported Past Psychological History: Anxiety, Depression Smoking Status: Current every day smoker Past Alcohol Use History: Abuse, Daily Past Drug Use History: Heroin <Derian Navarro - Last Filed: 03/22/20 14:50> General Exam Limitations: no limitations <Derian Navarro - Last Filed: 03/22/20 14:50> - General Exam Comments Initial Comments: GENERAL: Patient is well-developed and well-nourished. Patient is nontoxic and well- hydrated and is in no acute distress. ENT: Neck is soft and supple. No significant lymphadenopathy is noted. Oropharynx is clear. Moist mucous membranes. Neck has full range of motion without eliciting any pain. EYES: The sclera were anicteric and conjunctiva were pink and moist. Extraocular movements were intact and pupils were equal round and reactive to light. Eyelids were unremarkable. PULMONARY: Unlabored respirations. Good breath sounds bilaterally. No audible rales rhonchi or wheezing was noted. CARDIOVASCULAR: There is a regular rate and rhythm without any murmurs gallops or rubs. ABDOMEN: Soft and nontender with normal bowel sounds. SKIN: Skin is clear with no lesions or rashes and otherwise unremarkable. NEUROLOGIC: Patient is alert and oriented x3. Cranial nerves II through XII are grossly intact. Motor and sensory are also intact. Normal speech, volume and content. Symmetrical smile. MUSCULOSKELETAL: Normal extremities with adequate strength and full range of motion. LYMPHATICS: No significant lymphadenopathy is noted PSYCHIATRIC: Patient states he is suicidal. (Derian Navarro) Course Vital Signs 03/22/20 13:26 Temperature 98.9 F Pulse Rate 80 Respiratory 20 Rate Blood Pressure 155/95 O2 Sat by Pulse 99 Oximetry Medical Decision Making <Derian Navarro - Last Filed: 03/22/20 14:50> <Suni Yuen - Last Filed: 03/22/20 16:28> - Medical Decision Making Dr. Yuen will be taking over the care of this patient at 3 PM (Derian Navarro) Patient was evaluated by EPS and they do recommend inpatient placement (Suni Yuen) - Lab Data Lab Results 03/22/20 Range/Units 14:31 Urine Opiates Screen Not Detected (NotDetected) Ur Oxycodone Screen Not Detected (NotDetected) Urine Methadone Screen Not Detected (NotDetected) Ur Propoxyphene Screen Not Detected (NotDetected) Ur Barbiturates Screen Detected H (NotDetected) U Tricyclic Antidepress Not Detected (NotDetected) Ur Phencyclidine Scrn Not Detected (NotDetected) Ur Amphetamines Screen Not Detected (NotDetected) U Methamphetamines Scrn Not Detected (NotDetected) U Benzodiazepines Scrn Not Detected (NotDetected) Urine Cocaine Screen Not Detected (NotDetected) U Marijuana (THC) Screen Not Detected (NotDetected) Disposition <Derian Navarro - Last Filed: 03/22/20 14:50> Is patient prescribed a controlled substance at d/c from ED?: No Decision to Admit Reason: Admit from EC Decision Date: 03/22/20 Decision Time: 16:27 <Suni Yuen - Last Filed: 03/22/20 16:28> Clinical Impression: Depression, Bipolar disorder Disposition: ADMITTED IP TO THIS [facility] Condition: Stable
[2020-03-22 14:56] LABS: Cocaine Screen,Urine Not Detected (NotDetected); Opiate Screen,Urine Not Detected (NotDetected); Phencyclidine Screen,Urine Not Detected (NotDetected); Urn Cannabinoid Scrn Not Detected (NotDetected)
[2020-03-22 14:57] LABS: Amphetamine Screen,Urine Not Detected (NotDetected); Barbiturate Screen,Urine Detected (NotDetected); Benzodiazepines Screen,Urine Not Detected (NotDetected); Methadone Screen, Urine Not Detected (NotDetected); Oxycodone Screen, Urine Not Detected (NotDetected); Tricyclic Antidepressant,Urine Not Detected (NotDetected)
[2020-03-22] MEDS ORDERED: ZIPRASIDONE 20 MG VIAL IM PRN (16:12)
[2020-03-22] MEDS ORDERED: MAG HYDROX/AL HYDROX/SIMETH 30 ML CUP PO PRN (16:12)
[2020-03-22] MEDS ORDERED: ACETAMINOPHEN TAB 325 MG TAB PO PRN (16:12)
[2020-03-22] MEDS ORDERED: MAGNESIUM HYDROXIDE 2,400 MG/10 ML CUP PO PRN (16:12)
[2020-03-22] MEDS: LORazepam 1 MG TAB PO PRN (16:55)
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
[2020-03-22] MEDS: NICOTINE 14MG/24HR PATCH TRANSDERM SCH (23:33)
[2020-03-22] MEDS: THIAMINE 100 MG TAB PO SCH (23:35)
[2020-03-23] MEDS: LORazepam 1 MG TAB PO PRN ×3 (00:26→16:30)
[2020-03-23 07:33] LABS: Basophils # (A) 0.1 k/uL (0-0.2); Basophils % (A) 2 %; Eosinophils # (A) 0.2 k/uL (0-0.7); Eosinophils % (A) 3 %; HCT 48.5 % (39.0-53.0); HGB 16.1 gm/dL (13.0-17.5); Lymphocytes # (A) 2.3 k/uL (1.0-4.8); Lymphocytes % (A) 41 %; MCHC 33.2 g/dL (31.0-37.0); MCV 96.6 fL (80.0-100.0); Mean Platelet Volume 6.6; Monocytes # (A) 0.4 k/uL (0-1.0); Monocytes % (A) 7 %; Neutrophils # (A) 2.5 k/uL (1.3-7.7); Neutrophils % (A) 45 %; Platelet Count 375 k/uL (150-450); RBC 5.02 m/uL (4.30-5.90); RDW 13.3 % (11.5-15.5); WBC 5.6 k/uL (3.8-10.6)
[2020-03-23 07:46] LABS: ALT 68 U/L (4-49); AST 39 U/L (17-59); African American GFR (CKD) >90 (>60 ml/min/1.73 sqM); Albumin 4.4 g/dL (3.5-5.0); Alkaline Phosphatase 85 U/L (38-126); Anion Gap 8 mmol/L; Blood Urea Nitrogen 14 mg/dL (9-20); Calcium 9.5 mg/dL (8.4-10.2); Carbon Dioxide 25 mmol/L (22-30); Chloride 105 mmol/L (98-107); Cholesterol 273 mg/dL (<200); Glucose 111 mg/dL (74-99); HDL Cholesterol 53 mg/dL (40-60); LDL Cholesterol,Calculated 190 mg/dL (0-99); Non-African American GFR(CKD) 85 (>60 ml/min/1.73 sqM); Potassium 4.5 mmol/L (3.5-5.1); Sodium 138 mmol/L (137-145); Total Bilirubin 0.6 mg/dL (0.2-1.3); Total Protein 7.3 g/dL (6.3-8.2); Triglycerides 152 mg/dL (<150)
[2020-03-23] MEDS: NICOTINE 14MG/24HR PATCH TRANSDERM SCH (08:15)
[2020-03-23] MEDS: THIAMINE 100 MG TAB PO SCH (08:15)
[2020-03-23 09:15] LABS: Urine Alcohol Negative (Negative); Urine Barbiturate Positive (Negative); Urine Cocaine Negative (Negative); Urine Methadone Negative (Negative); Urine Opiates Negative (Negative); Urine Phencyclidine Negative (Negative)
[2020-03-23 14:20] LABS: Hemoglobin A1C 5.5 % (4.0-6.0)
[2020-03-23] MEDS: LURASIDONE 40 MG TAB PO SCH (21:45)
--- NOTE | 2020-03-23 23:25 | HP ---
DATE OF SERVICE: 03/23/2020 HISTORY AND PHYSICAL IDENTIFYING DATA: The patient is a 49-year-old male. He has been residing at [facility] for substance abuse treatment. He was referred through the emergency room for evaluation. CHIEF COMPLAINT: The patient had been withdrawing from alcohol. He had thoughts of suicide with a plan of signing out of [facility] to kill himself. He had a plan to make that happen. HISTORY OF PRESENTING ILLNESS: The patient has had long-term problems with depression. He had a recent psychiatric admission to this facility from 01/14 to 01/18/2020 and I refer the reader to Dr. Alberts notes for detail. At that time he was having increasing problems with depression. He had been on some psychotropic medications, though ran out of those. He was feeling increasingly depressed and hopeless. He also had a number of stress issues including having had 3 DUIs in the previous 3 months. He was discharged 01/18/2020. Discharge medications included Prozac 40 mg a day and Zyprexa 5 mg a day. The patient stated that after he left the hospital, he returned to active drinking. He said that he has had depression over the last several years, though drinking issues started up in October which he described as "self treatment for depression." He said that depression goes back at least over the last 3 or 4 years after he lost a job when he was working in [place], he moved back to [place]. He said he has had a lot of trouble with depression and anxiety. He has stated he has had 1 or 2 manic episodes. He noted he was on Zyprexa which he felt helped with alejandro, though did not really help with depression. He noted for the most part that Zyprexa helped him sleep. He has had significant anxiety and some panic symptoms. He noted that he had some anxiety issues through his teens. He felt that he compensated for that in his 20s and 30s by becoming very active doing things like competitive mountain biking. He said he was very persistent in these activities through those 2 decades. He said in his 40s, he started to veer away from that. He noted that his drinking was progressively getting worse in the last few months. He felt he had significant withdrawal issues for a period of time. During his last hospitalization he said pretty much from the time that he got discharged to present he got back into drinking. He acknowledges drinking about 8-10 beers a day. He was somewhat vague about details, though said at one point he went into [facility] for a couple weeks. From there he left and then was homeless for short period of time after that he got into [facility], though then left again and had some days of being homeless leading up to his current admission. He says that he has been sleeping poorly. He has loss of motivation, energy and interest. He denies hallucinations or delusions. He does not identify significant panic symptoms. Currently, he does not identify any posttraumatic issues. He said he had run out of his medications as he did not follow up with his primary care physician. It is noted that the patient had not felt that Zyprexa was helpful for depression. He said he had reviewed issues with a physician with the recommendation that Latuda might be a reasonable option that could also help with depression. He is admitted for further evaluation. SUBSTANCE USE HISTORY: Patient said that in the past he has used other substances. He was vague on details, though indicates that he has used [place], methamphetamine, cocaine at other times in previous years. PAST MEDICAL HISTORY: Patient denies any current or chronic general health complaints. FAMILY AND SOCIAL HISTORY: Patient is single. He has no children. He has a BS degree in biology. 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 He has been unemployed in recent times. MENTAL STATUS EXAM: Patient sat with some restlessness. He gave fair eye contact. He answered questions with brief responses. At times, he rambled some. His thoughts otherwise were clear and coherent. His affect was anxious. His mood depressed. He was moderately distressed. There was no indication of thought disorder. He denied thoughts of harm to self or others at the time that I interviewed him, though acknowledges that he did have suicide thoughts leading up to coming into the hospital. On cognitive exam, he was oriented x3 and alert. Recent remote memory was intact. Attention and concentration fair. Insight and judgment fair to poor. Fund of knowledge average to somewhat above average. PHYSICAL EXAM: As per medical consultation. ASSESSMENT: This is a 49-year-old male is diagnosed with alcohol dependence and acute alcohol withdrawal along with chronic depression. His immediate precipitating factors are relapse to drinking. It is unclear what all is related to his longer-term problems with depression. STRENGTHS: Include shawnee intelligence. WEAKNESSES: Includes relapse to drinking. DIAGNOSES: 1. Alcohol dependence and acute alcohol withdrawal. 2. Major depression, chronic and recurrent with acute exacerbation. 3. Rule out bipolar affective disorder. RECOMMENDATIONS: Patient will be admitted for comprehensive medical psychiatric and psychosocial evaluation. We will engage the patient in individual and group therapeutic activities. I reviewed medication options with the patient. We discussed the possibility of his going back on Zyprexa with the primary focus of benefits for withdrawal. I discussed Latuda as an alternative. The patient was interested in trying Latuda. We discussed that the primary focus at this point would be in helping him through acute withdrawal and that it would be difficult to be clear what would be appropriate treatment options until he is at least 6-8 weeks clean from alcohol and any other abusive substances. It would be discussed that it would be reasonable to initiate Latuda if he does in fact have an underlying diagnosis of bipolar disorder. The patient had also mention Wellbutrin. I noted that there is potential risks for antidepressants in the face of bipolar disorder. At this point, I will start the patient on Latuda 60 mg a day, which was his preference over Zyprexa. I had an extensive discussion regarding withdrawal related issues including the time course of withdrawal and expectations. We will focus on stabilization and discharge planning. DELMA / PAULON: [id number] / GOLDY
[2020-03-23] MEDS: traZODone HCL 100 MG TAB PO SCH (23:56)
[2020-03-24] MEDS: LURASIDONE 40 MG TAB PO SCH (08:48)
[2020-03-24] MEDS: THIAMINE 100 MG TAB PO SCH (08:48)
[2020-03-24] MEDS: NICOTINE 14MG/24HR PATCH TRANSDERM SCH (08:48)
[2020-03-24] MEDS ORDERED: OLANZapine 5 MG TAB PO SCH (14:15)
--- NOTE | 2020-03-24 14:45 | PN ---
PROGRESS NOTE DATE OF SERVICE: 03/24/2020 CHIEF COMPLAINT: The patient had been withdrawn from alcohol. He had thoughts of suicide with a plan of signing out of [place] to kill himself. He had plans to make that happen. INTERVAL HISTORY: Patient has been doing fair. He had a quiet day yesterday. Mostly he was withdrawn and kept to himself. He comes out in the day area and wonders about. He did interact with some staff and peers. He did not attend groups yesterday. He said he had a lot of anxiety and was feeling quite distressed. He said he only slept three hours last night. Today he has been up. He continues to feel quite anxious. He had been asking for Ativan. We discussed the issues of detox and that Ativan would be indicated specifically for detox to reduce risk for the patient going into delirium tremens. He is beyond the point of risk for DTs. In addition, it is noted his vital signs have been stable. He is running a pulse at midnight of 100 and this morning at 9:00 of 103. Blood pressure this morning was 102/67. His temperature has been in the normal range. He has not had diaphoresis. The patient did not note any clear problems or issues taking Latuda, though he does not feel it helped him in any way yesterday. When I reviewed medication issues with the patient, particularly in terms of focusing on withdrawal issues, the patient was comfortable with the idea of discontinuing Latuda and starting on Zyprexa. MENTAL STATUS: Patient sat with a little restlessness. He gave fair eye contact. He answered questions with brief responses. His thoughts were clear. Initially his affect was somewhat tense with an anxious manner though towards the end of the interview he smiled some and seem to be in a little more calm disposition. His mood was dysphoric though not clearly down or depressed. He appeared to be moderately distressed primarily with withdrawal symptoms. There was no indication of thought disorder. He voiced no thoughts of harm. Cognition was clear. ASSESSMENT: I will continue the current diagnosis and treatment plan. In the meanwhile, I will discontinue Latuda and start the patient on Zyprexa 5 mg 3 times a day. I reviewed the indication for Zyprexa, namely to help reduce physiologic stress response relating to acute alcohol withdrawal. I discussed potential side effects including issues relating to metabolics and movement disorder. At this point, the patient will also receive trazodone 100 mg at bedtime. I would anticipate the dosing of Zyprexa with the addition of trazodone should improve his sleep. I continue to discuss issues related to substance withdrawal. We will focus on stabilization and discharge planning. DELMA / ROSMERY: [id number] /
[2020-03-24] MEDS ORDERED: OLANZapine 5 MG TAB PO ONE (17:00)
[2020-03-24] MEDS: traZODone HCL 100 MG TAB PO SCH (20:25)
[2020-03-24] MEDS: OLANZapine 5 MG TAB PO SCH (22:09)
[2020-03-25] MEDS: NICOTINE 14MG/24HR PATCH TRANSDERM SCH (08:55)
[2020-03-25] MEDS: OLANZapine 5 MG TAB PO SCH ×3 (08:55→21:15)
[2020-03-25] MEDS: THIAMINE 100 MG TAB PO SCH (08:55)
--- NOTE | 2020-03-25 10:30 | P.PN ---
Progress Note - Text Progress Note Date: 03/25/20 I reviewed medical records ,did interview patient and case was discussed in treatment team TODAY VITALS: Temp:97.7,P:71,R:14,BP:133/85 Some participation in milieu Slept :7 hours Did review medical consult INTERVAL : patient was laying in bed and ,agreed to come to office , stated that his last alcohol use was 5 days ago ,he had 12 beers ,he denies any withdrawal symptoms ,stated that taking Zyprexa three times helping his anxiety ,I explained to him metabolic side-effect from Zyprexa ,he verbalized understanding ,he stated "Please do not cut down dose",he rates his depression 8/10 ,anxiety 6/10 ,10 being the worst ,denies any current suicidal or homicidal ideation,denies any psychotic features,discussed post plan discharge to recovery [facility] Mental status exam: Patient was wearing his own clothing ,hygiene and grooming are marginal , ,denies any hallucination or delusional thinking,, alert to person and place ,denies suicidal or homicidal ideation ,insight and judgment are limited ASSESSMENT :Major depression versus Bipolar unspecified ,alcohol use disorder PLAN: Patient continues to meet criteria for inpatient psychiatric admission for symptom stabilization start Lexapro for depression and anxiety ,continue Zyprexa 5 mg TID and Trazodone for insomnia ,PRN Vistaril for anxiety ,encourage groups participation ,SW on board for discharge planning
[2020-03-25] MEDS: traZODone HCL 100 MG TAB PO SCH (21:15)
--- NOTE | 2020-03-26 08:11 | P.PN ---
Progress Note - Text Progress Note Date: 03/26/20 I reviewed medical records ,did interview patient and case was discussed in treatment team CIWA :0 Did participate in 3-4 groups yesterday Slept :7 priscila INTERVAL : patient was laying in bed and ,agreed to come to office,denies any sleeping or appetite problems ,has been compliant with medications and denies any side-effects,stated that his anxiety is less since has been taking Zyprexa three times a day ,still feeling depressed due to ongoing stressor :homeless,unemployed ,legal problems(3 DUI) and no income but denies any current suicidal ideation,denies feeling hopeless or helpless,denies any current manic features ,described hypomanic features:racing thoughts and irritability but he stated that these symptoms improving with Zyprexa Mental status exam: Patient was wearing his own clothing ,hygiene and grooming are fair, ,denies any hallucination or delusional thinking,, alert to person and place ,denies suicidal or homicidal ideation ,insight and judgment are limited ASSESSMENT : Bipolar unspecified ,alcohol use disorder PLAN: Patient continues to meet criteria for inpatient psychiatric admission for symptom stabilization continue Lexapro for depression and anxiety ,continue Zyprexa 5 mg TID for racing thoughts and mood stabilization , Trazodone for insomnia ,PRN Vistaril for anxiety ,encourage groups participation ,SW on board for discharge planning Patient will call recovery housing today
[2020-03-26] MEDS: NICOTINE 14MG/24HR PATCH TRANSDERM SCH (08:54)
[2020-03-26] MEDS: ESCITALOPRAM 10 MG TAB PO SCH (08:54)
[2020-03-26] MEDS: OLANZapine 5 MG TAB PO SCH ×3 (08:54→21:02)
[2020-03-26] MEDS: THIAMINE 100 MG TAB PO SCH (08:54)
[2020-03-26] MEDS: traZODone HCL 100 MG TAB PO SCH (21:02)
[2020-03-27 07:01] VITALS: BP 114/66; PULSE 52; RESP 16; TEMP 97.5
[2020-03-27] MEDS: THIAMINE 100 MG TAB PO SCH (08:50)
[2020-03-27] MEDS: ESCITALOPRAM 10 MG TAB PO SCH (08:50)
[2020-03-27] MEDS: NICOTINE 14MG/24HR PATCH TRANSDERM SCH (08:50)
[2020-03-27] MEDS: OLANZapine 5 MG TAB PO SCH (08:50)
--- NOTE | 2020-03-27 16:11 | DS ---
DISCHARGE SUMMARY DATE OF ADMISSION: 03/22/2020. DATE OF DISCHARGE: 03/27/2020. 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 Peng Forte for history and physical exam and medical management. DISCHARGE DIAGNOSES: 1. Alcohol use disorder, severe. 2. Bipolar disorder, unspecified versus chronic major depression, recurrent. HISTORY AND PHYSICAL EXAMINATION: At the time of the admission, the patient is 49 years, male, who is currently homeless and he was at [facility] for substance abuse treatment only for 2 days and he stated that he started feeling suicidal with a plan to sign himself out of the [facility] to kill himself, so he was referred to the emergency room for admission. Patient stated that he has been stressed out as he does not have any income. No housing and over the last couple of months. He has 3 drunk driving ticket. Patient has poor compliance with followup treatment regarding his substance use and his recurrent relapse. For complete history and physical examination please refer to Dr. Allen's dictation on March 23, 2020. HOSPITAL COURSE: Patient was admitted on involuntary basis. He was initially under Dr. Allen's care for 2 days, March 23 and March 24, who did start the patient back on his Prozac and Zyprexa 5 mg and Ativan as needed for any alcohol withdrawal. However, the patient did have 12 beer at least 3 days prior to his admission, so Ativan was discontinued and he was having p.r.n. Vistaril. The patient was very upset after he did find out that the Ativan was discontinued and he stated that he needs to discuss it with Dr. Allen regarding why he did change his medication, so Dr. Allen decided to give him Zyprexa 3 times a day for anxiety 5 mg 3 times a day. When I saw the patient, the patient did not have any insight into his alcohol use. He stated that he is depressed and anxious, but he denied any suicidal ideation. He was participating in every group. I did discuss with him to cut down the Zyprexa due to the side effect and the metabolic side effect of Zyprexa, but he was very reluctant stated that it does help him to calm down. Regarding his lab, the patient has high cholesterol at 273 and his triglycerides it is 152 and LDL 190 and I did discuss with him this in addition the biomedical specialist did discuss it with him. Also, his urine drug screen was positive for barbiturate, but patient was not clear about how did he get the barbiturate throughout the course of the hospitalization. Patient gradually improved with regard of his mood, anxiety and sleep, especially when trazodone was added as needed for sleep. On March 26, he told me that he will call [facility]. However, when I saw him on March 27, he stated that he does not remember or he said "I just put it off because I saw that I will stay here and tell March 30." He stated that he has already an appointment for intake at [facility] in the [facility] on March 30. On the day of the discharge, patient denied any suicidal or homicidal ideation, intent, or plan. He denied any auditory or visual hallucination. He stated that he will work on his sobriety. He denied any access to gun or weapon. According to him, he has saving that he can stay in the hotel and tells March 30 when he has intake for recovering housing. He denied any paranoia. He did not endorse any delusional thinking. The patient does have a significant history of substance abuse and was counseled on abstaining from alcohol. The patient was offered to go back to [facility], but he refused. He stated that he preferred to go to recovery housing and during his previous discharge, he did have a bed in sober housing at [facility] on January 18, but he did not pursue it and he did relapse on alcohol. The patient was also counseled on the medication and the side effect of the Zyprexa, especially he has high cholesterol. He was encouraged to follow up with his primary care physician regarding his high cholesterol. MENTAL STATUS EXAMINATION: At the time of the discharge, patient appears to be stated age. Alert, cooperative, pleasant, in no acute distress. He was sitting calmly. No agitation. Speech is coherent. He reported that his mood is better. Affect is constricted. He denied having any suicidal or homicidal ideation, intent, or plan. He denied any auditory or visual hallucination. There is no evidence of any delusional thinking. Thought process is linear and goal directed. He is alert, oriented x3. Memory is grossly intact. His insight and judgment improved. However, his insight regarding his alcohol use is still questionable. DISCHARGE DIAGNOSES: 1. Alcohol use disorder, severe. 2. Bipolar disorder, unspecified. 3. Nicotine dependence. PLAN: The patient will be discharged today as he has improved regarding his depression and he is not imminent to hurt himself or other. The patient has to keep his appointment for intake for the recovery or sober housing on March 30, the patient was given 2 week supply with I refilled. 1. Zyprexa 5 mg 3 times a day for mood stabilization. 2. Lexapro 10 mg daily for 2 weeks and 1 refill. 3. Trazodone 100 mg at bedtime for insomnia for two weeks and 1 refill. The patient stated that he will stay in motel for the next 4 days until his intake at the sober housing. Patient was instructed to return to the hospital if symptoms reoccur. DELMA / ROSMERY: [id number] /
== END 2020-03-27 12:12 | disposition home or self-care (01) | DRG 885 ==
LOC: EC 13:22 → 3MHU 15:49
PROVIDERS: ADMIT Psychiatry & Neurology Psychiatry; ATTEND Psychiatry & Neurology Psychiatry
DX: F31.9 Bipolar disorder, unspecified (principal); R45.851 Suicidal ideations; G47.00 Insomnia, unspecified; F41.9 Anxiety disorder, unspecified; F17.200 Nicotine dependence, unspecified, uncomplicated; F10.10 Alcohol abuse, uncomplicated; E78.00 Pure hypercholesterolemia, unspecified; Z79.899 Other long term (current) drug therapy; Z59.0 Homelessness; Z56.0 Unemployment, unspecified
CPT/HCPCS: 80053; 80061; 80306; 82075; 83036; 84443; 85025; 99285

== ENCOUNTER 2020-06-21 23:42 | Inpatient (IN) | payer MEDICAID, OTHER ==
--- NOTE | 2020-06-21 23:50 | ED ---
Psych HPI - General Chief Complaint: Psychiatric Symptoms Stated Complaint: Mental Health Time Seen by Provider: 06/21/20 23:50 Source: patient, family Mode of arrival: ambulatory - History of Present Illness Initial Comments: This is a 49-year-old male DF for evaluation patient presents with alcohol withdrawal psychiatric illness. Patient presents today feels suicidal, concern for alcohol withdrawal, patient states he does have prior history of similar no prior inpatient psychiatric admission MD Complaint: suicidal ideation, feels depressed -: days(s) Associated Psychiatric Symptoms: suicidal ideation History of same: Yes Quality: constant Improves With: none Worsens With: alcohol Context: recent alcohol abuse, not taking psychiatric medications Associated Symptoms: denies other symptoms Treatments Prior to Arrival: placed on mental health hold If Self Harm: admits thoughts of self harm - Related Data Previous Rx's Medication Instructions Recorded Folic Acid 1 mg PO DAILY 30 Days tab 01/18/20 Multivitamins, Thera [Multivitamin 1 each PO DAILY 30 Days tab 01/18/20 (formulary)] Thiamine [Vitamin B-1] 100 mg PO DAILY 30 Days tab 01/18/20 Escitalopram [Lexapro] 10 mg PO DAILY 14 Days tab 03/27/20 OLANZapine [ZyPREXA] 5 mg PO TID 14 Days tab 03/27/20 traZODone HCL [Desyrel] 100 mg PO HS 14 Days tab 03/27/20 Allergies Allergy/AdvReac Type Severity Reaction Status Date / Time No Known Allergies Allergy Verified 06/22/20 03:38 Review of Systems ROS Statement: Those systems with pertinent positive or pertinent negative responses have been documented in the HPI. ROS Other: All systems not noted in ROS Statement are negative. Past Medical History Past Medical History: No Reported History Additional Past Medical History / Comment(s): depression History of Any Multi-Drug Resistant Organisms: None Reported Past Surgical History: No Surgical Hx Reported Past Anesthesia/Blood Transfusion Reactions: No Reported Reaction Past Psychological History: Anxiety, Depression Smoking Status: Current every day smoker Past Alcohol Use History: Abuse, Daily Past Drug Use History: Heroin - Past Family History Father Family Medical History: Chest Pain / Angina General Exam Limitations: no limitations General appearance: alert, in no apparent distress Head exam: Present: atraumatic, normocephalic, normal inspection Eye exam: Present: normal appearance, PERRL, EOMI. Absent: scleral icterus, conjunctival injection, periorbital swelling ENT exam: Present: normal exam, mucous membranes moist Neck exam: Present: normal inspection. Absent: tenderness, meningismus, lymphadenopathy Respiratory exam: Present: normal lung sounds bilaterally. Absent: respiratory distress, wheezes, rales, rhonchi, stridor Cardiovascular Exam: Present: regular rate, normal rhythm, normal heart sounds. Absent: systolic murmur, diastolic murmur, rubs, gallop, clicks GI/Abdominal exam: Present: soft, normal bowel sounds. Absent: distended, tenderness, guarding, rebound, rigid Extremities exam: Present: normal inspection, full ROM, normal capillary refill. Absent: tenderness, pedal edema, joint swelling, calf tenderness Back exam: Present: normal inspection Neurological exam: Present: alert, oriented X3, CN II-XII intact Psychiatric exam: Present: normal affect, normal mood Skin exam: Present: warm, dry, intact, normal color. Absent: rash Course Vital Signs 06/21/20 06/22/20 23:44 01:25 Temperature 98.7 F Pulse Rate 83 88 Respiratory 22 16 Rate Blood Pressure 104/73 134/85 O2 Sat by Pulse 99 97 Oximetry - Reevaluation(s) Reevaluation #1: Medical clear for psychiatric evaluation Patient seen and evaluated here in the ER Medical Decision Making - Medical Decision Making 49 male to be admitted for inpatient psychiatric evaluation and treatment patient did sign himself in - Lab Data Result diagrams: 06/22/20 07:55 06/22/20 07:55 Lab Results 06/22/20 Range/Units 02:14 Urine Color Yellow Urine Appearance Clear (Clear) Urine pH 5.5 (5.0-8.0) Ur Specific [place] 1.011 (1.001-1.035) Urine Protein Negative (Negative) Urine Glucose (UA) Negative (Negative) Urine Ketones Negative (Negative) Urine Blood Negative (Negative) Urine Nitrite Negative (Negative) Urine Bilirubin Negative (Negative) Urine Urobilinogen <2.0 (<2.0) mg/dL Ur Leukocyte Esterase Negative (Negative) Disposition Clinical Impression: Acute psychosis, Alcohol use disorder, moderate, dependence, Bipolar disorder, Depression Disposition: TRANSFER TO PSYCH HOSP/UNIT Condition: Fair Is patient prescribed a controlled substance at d/c from ED?: No
[2020-06-22] MEDS ORDERED: LORazepam 1 MG TAB PO STA (02:28)
[2020-06-22 02:39] LABS: Amphetamine Screen,Urine Detected (NotDetected); Barbiturate Screen,Urine Not Detected (NotDetected); Benzodiazepines Screen,Urine Not Detected (NotDetected); Cocaine Screen,Urine Not Detected (NotDetected); Methadone Screen, Urine Not Detected (NotDetected); Opiate Screen,Urine Not Detected (NotDetected); Oxycodone Screen, Urine Not Detected (NotDetected); Phencyclidine Screen,Urine Not Detected (NotDetected); Tricyclic Antidepressant,Urine Not Detected (NotDetected); Urn Cannabinoid Scrn Not Detected (NotDetected)
[2020-06-22] MEDS ORDERED: ACETAMINOPHEN TAB 325 MG TAB PO PRN (03:17)
[2020-06-22] MEDS ORDERED: MAG HYDROX/AL HYDROX/SIMETH 30 ML CUP PO PRN (03:17)
[2020-06-22] MEDS ORDERED: MAGNESIUM HYDROXIDE 2,400 MG/10 ML CUP PO PRN (03:17)
[2020-06-22] MEDS ORDERED: LORazepam 2 MG/ML INJ IM PRN ×2 (03:22→03:25)
[2020-06-22] MEDS ORDERED: LORazepam 1 MG TAB PO PRN (03:24)
[2020-06-22] MEDS ORDERED: haloperidoL 5 MG TAB PO PRN (03:26)
[2020-06-22] MEDS ORDERED: HALOPERIDOL LACTATE 5 MG/ML 1 ML VIAL IM PRN (03:26)
[2020-06-22 03:37] LABS: Appearance,Urine Clear (Clear); Bilirubin,Urine Negative (Negative); Blood,Urine Negative (Negative); Color,Urine Yellow; Glucose,Urine (UA) Negative (Negative); Ketones,Urine Negative (Negative); Leukocyte Esterase,Urine Negative (Negative); Nitrite,Urine Negative (Negative); PH, Urine 5.5 (5.0-8.0); Protein,Urine Negative (Negative); Specific Gravity,Urine 1.011 (1.001-1.035); Urobilinogen,Urine <2.0 mg/dL (<2.0)
[2020-06-22 08:29] LABS: Basophils # (A) 0.1 k/uL (0-0.2); Basophils % (A) 1 %; Eosinophils # (A) 0.2 k/uL (0-0.7); Eosinophils % (A) 3 %; HCT 46.2 % (39.0-53.0); Lymphocytes # (A) 2.2 k/uL (1.0-4.8); Lymphocytes % (A) 29 %; MCH 31.3 pg (25.0-35.0); MCHC 34.6 g/dL (31.0-37.0); MCV 90.5 fL (80.0-100.0); Mean Platelet Volume 6.5; Monocytes # (A) 0.3 k/uL (0-1.0); Monocytes % (A) 4 %; Neutrophils # (A) 4.8 k/uL (1.3-7.7); Neutrophils % (A) 62 %; Platelet Count 334 k/uL (150-450); RBC 5.11 m/uL (4.30-5.90); RDW 11.8 % (11.5-15.5); WBC 7.7 k/uL (3.8-10.6)
[2020-06-22 08:52] LABS: ALT 26 U/L (4-49); AST 31 U/L (17-59); African American GFR (CKD) >90 (>60 ml/min/1.73 sqM); Albumin 4.2 g/dL (3.5-5.0); Alkaline Phosphatase 97 U/L (38-126); Anion Gap 6 mmol/L; Bilirubin, Delta 0.3 mg/dL (0.0-0.2); Bilirubin,Unconjugated 0.2 mg/dL (0.0-1.1); Blood Urea Nitrogen 14 mg/dL (9-20); Calcium 9.3 mg/dL (8.4-10.2); Carbon Dioxide 24 mmol/L (22-30); Chloride 107 mmol/L (98-107); Cholesterol 242 mg/dL (<200); Glucose 111 mg/dL (74-99); HDL Cholesterol 63 mg/dL (40-60); LDL Cholesterol,Calculated 153 mg/dL (0-99); Non-African American GFR(CKD) 89 (>60 ml/min/1.73 sqM); Potassium 4.9 mmol/L (3.5-5.1); Sodium 137 mmol/L (137-145); Total Bilirubin 0.5 mg/dL (0.2-1.3); Total Protein 6.9 g/dL (6.3-8.2); Triglycerides 132 mg/dL (<150)
[2020-06-22] MEDS: NICOTINE 14MG/24HR PATCH TRANSDERM SCH (08:53)
[2020-06-22] MEDS: LORazepam 1 MG TAB PO PRN ×2 (08:53→13:09)
--- NOTE | 2020-06-22 10:12 | P.HP ---
Psychiatric H&P - . H&P Date: 06/22/20 History & Physical: IDENTIFYING DATA: He is a 49-year-old single male admitted psychiatric unit voluntarily. HISTORY OF PRESENT ILLNESS: He presented to the emergency center voluntarily with complaints of suicidal ideation and a plan to drink himself to . He stated that he is been distressed and overwhelmed because he anticipates going shelter. He perseverated on not being able to cope with incarcerated for an extended period of time. He talked about how he would rather or as he put it "put a bullet through my head" before he would go to shelter. Apparently he received his third driving while intoxicated citation this weeks; his 3rd in the last 3 months. He was incarcerated on Wednesday prior to this admission and released on wilhelm on "Wednesday or Wednesday." He has a hearing scheduled for 06/25/2020 and fully anticipates that she would be incarcerated. He talked about drinking daily to intoxication usually beer but sometimes whiskey. He was evasive about the amount but suggested that when he drank beer would be at least "case" or a "fifth" whiskey. He denied recent use of other drugs to get high, help him sleep or changes mood. However, his UDS was positive for amphetamine and methamphetamine. His breath alcohol level on presentation before meals was 0.061. He described a long history of alcohol and drug use problems beginning in late adolescent. He received his first driving while intoxicated citation when he was "16 or 17" years old. He controlled his alcohol and drug use "for many years" until he relapsed when he was approximately 45 years old while he was living in [place]. He attributed the relapse to undiagnosed psychiatric illness and perseverated about having diagnosis of ADHD, anxiety disorder, depression and bipolar illness. He talked about feeling "on top of the world" for many years and when he turned 45 "crashing". She discovered that methamphetamine created the same sense of euphoria that the experience before the abrupt change in his mood. He has been using methamphetamine since. 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 PAST PSYCHIATRIC HISTORY: He first received mental health services when he is adolescent as a result of his alcohol use. He believes that he has been admitted approximately 12 times to psychiatric hospitals either in [place] or in [place]. His first psychiatric hospitalization was in [place] when he was 45 years old. This is his third admission to our psychiatric unit. He was discharged last in March 2020 with the diagnoses of alcohol use disorder severe in a bipolar illness. His discharge plan including Zyprexa 5 mg 3 times a day, Lexapro 10 mg daily and trazodone 100 mg at night. He was referred to the [facility] for residential substance abuse treatment. PAST MEDICAL HISTORY: He has no major medical illnesses. He alleges that he is had medical hospitalizations for alcohol intoxication and alcohol withdrawal. ALLERGIES: NO KNOWN DRUG ALLERGIES SUBSTANCE USE HISTORY: As above FAMILY PSYCHIATRIC/SUBSTANCE USE HISTORY: There is a history of mood disorders including bipolar illness on the maternal side of his family. LEGAL HISTORY: As above SOCIAL HISTORY: He is born and raised in [place]. He graduated high school and received a bachelor's degree from [employer]. He is single and has no children. 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 He was terminated as a result of his methamphetamine use. 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 He currently has no stable housing. MENTAL STATUS EXAM: He presented as a disheveled 49-year-old male with a thick aly. He made eye contact and attended the interview. He had no distinguishing features or prominent physical abilities. He had a distressed facial expression. He is alert and oriented to person, place and time. He showed no abnormality of psychomotor activity. He was not restless. He had no abnormal involuntary movements. His speech was pressured with increased volume and amount. His affect was elevated but not intense or inappropriate. He describes suicidal ideation and wishes. He denied homicidal ideation. He expressed feelings of hopelessness and helplessness particularly with regard to his legal problems. He ruminated about his medical problems and his struggles "to feel normal." He did not express ideas reference, paranoid ideation or delusions. His thinking was abstract and associations were coherent, logical and goal directed. He did not demonstrate perseveration, neologisms or blocking. He denied hallucinations and did not appear to be responding to internal stimuli. Global impression of intellect is average to above. He is aware of his illness and need for treatment. STRENGTHS: Good physical health, employment history, supportive family WEAKNESSES: Chronic alcohol and substance use problems, legal problems IMPRESSION: 49-year-old single male admitted psychiatric unit voluntarily with complaints of suicidal ideation and wishes. He became acutely distressed after he was arrested for his third driving while intoxicated offense. He he is convinced that he was likely be incarcerated. He perseverated on his inability to cope with the extended incarceration. His long history of alcohol and substance abuse problems beginning in adolescence. He drinks on a daily basis usually to intoxication. In addition, he's been using methamphetamine. Overall, he is shown a marked decline in his functioning over the last 4 years. He has signs and symptoms suggestive of a bipolar illness in addition to the substance use problems. He should best be treated inpatient basis with a combination of psychopharmacology and multimodal therapy. PRINCIPLE DIAGNOSIS: Alcohol withdrawal, alcohol use disorder severe, bipolar illness with recent episode hypomanic, legal problems RECOMMENDATION: Admitted to the psychiatric unit. Safety precautions. Consult medicine for initial physical exam and medical history. 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 Librium 25 mg 3 times a day for alcohol withdrawal and titrated according to clinical response and tolerance. Symptomatic dosing of Ativan 1 mg or 2 mg based on the CIWA scores. Haldol 5 mg by mouth or IM every 6 hours for agitation or aggression. Once the acute alcohol withdrawal symptoms subsides then reevaluate treatment of the bipolar illness. Evaluate clinical status response to treatment daily basis. Encourage participation in therapeutic groups and activities. Allergies Allergy/AdvReac Type Severity Reaction Status Date / Time No Known Allergies Allergy Verified 06/22/20 03:38 Vital Signs Temp 99.2 F 06/22/20 03:33 Pulse 90 06/22/20 03:33 Resp 15 06/22/20 03:33 BP 105/68 06/22/20 03:33 Pulse Ox 98 06/22/20 03:33 Intake & Output 06/21/20 06/22/20 06/22/20 18:59 06:59 18:59 Weight 68.606 kg Laboratory Last Values WBC 7.7 k/uL (3.8-10.6) 06/22/20 07:55 RBC 5.11 m/uL (4.30-5.90) 06/22/20 07:55 Hgb 16.0 gm/dL (13.0-17.5) 06/22/20 07:55 Hct 46.2 % (39.0-53.0) 06/22/20 07:55 MCV 90.5 fL (80.0-100.0) 06/22/20 07:55 MCH 31.3 pg (25.0-35.0) 06/22/20 07:55 MCHC 34.6 g/dL (31.0-37.0) 06/22/20 07:55 RDW 11.8 % (11.5-15.5) 06/22/20 07:55 Plt Count 334 k/uL (150-450) 06/22/20 07:55 MPV 6.5 06/22/20 07:55 Neutrophils % 62 % 06/22/20 07:55 Lymphocytes % 29 % 06/22/20 07:55 Monocytes % 4 % 06/22/20 07:55 Eosinophils % 3 % 06/22/20 07:55 Basophils % 1 % 06/22/20 07:55 Neutrophils # 4.8 k/uL (1.3-7.7) 06/22/20 07:55 Lymphocytes # 2.2 k/uL (1.0-4.8) 06/22/20 07:55 Monocytes # 0.3 k/uL (0-1.0) 06/22/20 07:55 Eosinophils # 0.2 k/uL (0-0.7) 06/22/20 07:55 Basophils # 0.1 k/uL (0-0.2) 06/22/20 07:55 Sodium 137 mmol/L (137-145) 06/22/20 07:55 Potassium 4.9 mmol/L (3.5-5.1) 06/22/20 07:55 Chloride 107 mmol/L (98-107) 06/22/20 07:55 Carbon Dioxide 24 mmol/L (22-30) 06/22/20 07:55 Anion Gap 6 mmol/L 06/22/20 07:55 BUN 14 mg/dL (9-20) 06/22/20 07:55 Creatinine 0.99 mg/dL (0.66-1.25) 06/22/20 07:55 Est GFR (CKD-EPI)AfAm >90 (>60 ml/min/1.73 sqM) 06/22/20 07:55 Est GFR (CKD-EPI)NonAf 89 (>60 ml/min/1.73 sqM) 06/22/20 07:55 Glucose 111 mg/dL (74-99) H 06/22/20 07:55 Calcium 9.3 mg/dL (8.4-10.2) 06/22/20 07:55 Total Bilirubin 0.5 mg/dL (0.2-1.3) 06/22/20 07:55 Conjugated Bilirubin 0.0 mg/dL (0.0-0.3) 06/22/20 07:55 Unconjugated Bilirubin 0.2 mg/dL (0.0-1.1) 06/22/20 07:55 Delta Bilirubin 0.3 mg/dL (0.0-0.2) H 06/22/20 07:55 AST 31 U/L (17-59) 06/22/20 07:55 ALT 26 U/L (4-49) 06/22/20 07:55 Alkaline Phosphatase 97 U/L (38-126) 06/22/20 07:55 Total Protein 6.9 g/dL (6.3-8.2) 06/22/20 07:55 Albumin 4.2 g/dL (3.5-5.0) 06/22/20 07:55 Triglycerides 132 mg/dL (<150) 06/22/20 07:55 Cholesterol 242 mg/dL (<200) H 06/22/20 07:55 LDL Cholesterol, Calc 153 mg/dL (0-99) H 06/22/20 07:55 HDL Cholesterol 63 mg/dL (40-60) H 06/22/20 07:55 TSH 0.853 mIU/L (0.465-4.680) 06/22/20 07:55 Urine Color Yellow 06/22/20 02:14 Urine Appearance Clear (Clear) 06/22/20 02:14 Urine pH 5.5 (5.0-8.0) 06/22/20 02:14 Ur Specific [place] 1.011 (1.001-1.035) 06/22/20 02:14 Urine Protein Negative (Negative) 06/22/20 02:14 Urine Glucose (UA) Negative (Negative) 06/22/20 02:14 Urine Ketones Negative (Negative) 06/22/20 02:14 Urine Blood Negative (Negative) 06/22/20 02:14 Urine Nitrite Negative (Negative) 06/22/20 02:14 Urine Bilirubin Negative (Negative) 06/22/20 02:14 Urine Urobilinogen <2.0 mg/dL (<2.0) 06/22/20 02:14 Ur Leukocyte Esterase Negative (Negative) 06/22/20 02:14 Urine Opiates Screen Not Detected (NotDetected) 06/22/20 02:25 Ur Oxycodone Screen Not Detected (NotDetected) 06/22/20 02:25 Urine Methadone Screen Not Detected (NotDetected) 06/22/20 02:25 Ur Propoxyphene Screen Not Detected (NotDetected) 06/22/20 02:25 Ur Barbiturates Screen Not Detected (NotDetected) 06/22/20 02:25 U Tricyclic Antidepress Not Detected (NotDetected) 06/22/20 02:25 Ur Phencyclidine Scrn Not Detected (NotDetected) 06/22/20 02:25 Ur Amphetamines Screen Detected (NotDetected) H 06/22/20 02:25 U Methamphetamines Scrn Detected (NotDetected) H 06/22/20 02:25 U Benzodiazepines Scrn Not Detected (NotDetected) 06/22/20 02:25 Urine Cocaine Screen Not Detected (NotDetected) 06/22/20 02:25 U Marijuana (THC) Screen Not Detected (NotDetected) 06/22/20 02:25 Coronavirus (PCR) Not Detected (Not Detectd) 06/22/20 02:26 06/22/20 09:43
[2020-06-22] MEDS ORDERED: ONDANSETRON ODT 4 MG TAB PO PRN (12:45)
[2020-06-22] MEDS: LOPERAMIDE 2 MG CAP PO PRN (13:09)
[2020-06-22 14:27] LABS: Hemoglobin A1C 5.5 % (4.0-6.0)
[2020-06-22] MEDS: chlordiazePOXIDE 25 MG CAP PO SCH ×2 (16:46→21:49)
--- NOTE | 2020-06-22 23:00 | P.CONS ---
History of Present Illness - Reason for Consult Consult date: 06/22/20 - History of Present Illness The patient is a 49-year-old male with a PMH of EtOH abuse and Methamphetamine abuse who presented to the emergency room with depression and suicidal ideation. Patient was admitted to the mental health unit where he was seen and evaluated. The patient reports that he drinks 10-15 beers daily for the past several years. He reports having to be hospitalized previously due to his alcohol withdrawal. Denied ICU admissions or alcohol withdrawal seizures. He notes that his last drink was yesterday morning. Reported feeling "the shakes" currently. Denied additional complaints. Denied chest pain, shortness of breath, fever, chills, abdominal pain, nausea, vomiting, cough. Review of Systems Pertinent positives and negatives as discussed in HPI, a complete review of systems was performed and all other systems are negative. Past Medical History Past Medical History: No Reported History Additional Past Medical History / Comment(s): depression History of Any Multi-Drug Resistant Organisms: None Reported Past Surgical History: No Surgical Hx Reported Past Anesthesia/Blood Transfusion Reactions: No Reported Reaction Smoking Status: Current every day smoker - Past Family History Father Family Medical History: Chest Pain / Angina Medications and Allergies Home Medications Medication Instructions Recorded Confirmed Type Folic Acid 1 mg PO DAILY 30 Days tab 01/18/20 06/22/20 Rx Multivitamins, Thera [Multivitamin 1 each PO DAILY 30 Days tab 01/18/20 06/22/20 Rx (formulary)] Thiamine [Vitamin B-1] 100 mg PO DAILY 30 Days tab 01/18/20 06/22/20 Rx Escitalopram [Lexapro] 10 mg PO DAILY 14 Days tab 03/27/20 06/22/20 Rx OLANZapine [ZyPREXA] 5 mg PO TID 14 Days tab 03/27/20 06/22/20 Rx traZODone HCL [Desyrel] 100 mg PO HS 14 Days tab 03/27/20 06/22/20 Rx Allergies Allergy/AdvReac Type Severity Reaction Status Date / Time No Known Allergies Allergy Verified 06/22/20 03:38 Physical Exam Vitals: Vital Signs Temp Pulse Pulse Pulse Resp BP BP 06/22/20 16:34 97.9 F 06/22/20 11:47 97.6 F 76 20 06/22/20 08:53 97.6 F 06/22/20 03:33 99.2 F 90 15 105/68 06/22/20 01:25 88 16 134/85 06/21/20 23:44 98.7 F 83 22 104/73 BP Pulse Ox 06/22/20 16:34 06/22/20 11:47 135/87 06/22/20 08:53 06/22/20 03:33 98 06/22/20 01:25 97 06/21/20 23:44 99 Intake and Output 06/22/20 06/22/20 06/22/20 06:59 14:59 22:59 Other: Weight 68.606 kg General: non toxic, no distress, appears at stated age, normal weight Derm: no unusual rashes/lesions no unusual ecchymoses, warm, dry Head: atraumatic, normocephalic, symmetric Eyes: EOMI, no lid lag, anicteric sclera, pupils equal round reactive to light ENT: Nose and ears atraumatic, no thrush, no pharyngeal erythema Neck: No thyromegaly, no cervical lymphadenopathy, trachea midline, supple Mouth: no lip lesion, mucus membranes moist Cardiovascular: S1S2 reg, no murmur, positive posterior tibial pulse bilateral, no edema, capillary refill less than 2 seconds Lungs: CTA bilateral, no rhonchi, no rales , no accessory muscle use Abdominal: soft, nontender to palpation, no guarding, no appreciable organomega ly, normal bowel sounds Ext: no gross muscle atrophy, muscle strength 5 out of 5 in all 4 extremities grossly, no contractures, Neuro: CN II-XI grossly intact, light touch intact all 4 extremities, mild outstretched hand tremor Psych: Alert, oriented, appropriate affect Results CBC & Chem 7: 06/22/20 07:55 06/22/20 07:55 Labs: Abnormal Lab Results - Last 24 Hours (Table) 06/22/20 06/22/20 Range/Units 02:25 07:55 Glucose 111 H (74-99) mg/dL Delta Bilirubin 0.3 H (0.0-0.2) mg/dL Cholesterol 242 H (<200) mg/dL LDL Cholesterol, Calc 153 H (0-99) mg/dL HDL Cholesterol 63 H (40-60) mg/dL Ur Amphetamines Screen Detected H (NotDetected) U Methamphetamines Scrn Detected H (NotDetected) Assessment and Plan Plan: EtOH abuse, impending withdrawal -Continue with Librium -Thiamine, folic acid Methamphetamine abuse -Advised on the importance of cessation Depression with suicidal ideation -As per psychiatry Thank you for allowing us to participate in the care of this patient. We will follow peripherally. Do not hesitate to contact us with questions. Someone can be reached from the [facility] hospitalist group at all hours of the day at [phone].
[2020-06-23] MEDS: LORazepam 1 MG TAB PO PRN ×3 (04:00→18:21)
[2020-06-23] MEDS: FOLIC ACID 1 MG TAB PO SCH (09:00)
[2020-06-23] MEDS: NICOTINE 14MG/24HR PATCH TRANSDERM SCH ×2 (09:00→09:03)
[2020-06-23] MEDS: chlordiazePOXIDE 25 MG CAP PO SCH ×3 (09:00→21:34)
[2020-06-23] MEDS: THIAMINE 100 MG TAB PO SCH (09:00)
[2020-06-23] MEDS: LOPERAMIDE 2 MG CAP PO PRN (11:32)
--- NOTE | 2020-06-23 15:23 | P.PN ---
Progress Note - Text Progress Note Date: 06/23/20 Clinical Problems: Alcohol withdrawal, alcohol use disorder severe, bipolar illness with recent episode hypomanic, legal problems Interim history: I reviewed the medical record and interviewed the patient. He complained of continued alcohol withdrawal symptoms that I received with Librium and Ativan. His CIWA scores ranged from 0-10 over the last 24 hours and in addition to the 25 mg of Librium 3 times a day his received 2 mg of Ativan. He reported continued feelings of hopelessness and helplessness over his legal problems and remains occupied on the possibility of incarceration. He has not attended therapeutic groups and activities. He slept 7 hours last night. He spends his time in bed coming out for meals her medications. Mental status exam: He presented as a casually groomed 40 male who is laying In bed. He made eye contact and attended to the interview. He was alert and oriented to person, place and time. He showed no abnormality of psychomotor activity. He was not diaphoretic or tremulous. His speech was spontaneous with decreased rate and rhythm. His affect was depressed and not reactive. He gave ambivalent answers to suicidal ideation and wishes. He ruminated about his legal problems.Ideas reference, paranoid ideation or delusions. His thinking was concrete and associations were coherent, logical and goal directed. He denied hallucinations and did not appear to responding to internal stimuli. Assessment: He is having minimal to moderate alcohol withdrawal symptoms from complicated by delirium or hallucinations. He continues to have suicidal thoughts. Plan: Continue inpatient treatment. Safety precautions. Continue Librium 25 mg 3 times a day as well as Ativan 1 mg every 4 hours when necessary for a CIWA score of 10 or greater. Review the need for antidepressants and/or mood stabilizer once the alcohol withdrawal subsides. Encourage participation in therapeutic groups and activities. Evaluate clinical status response to treatment daily basis.
[2020-06-24] MEDS: LORazepam 1 MG TAB PO PRN ×3 (05:15→16:41)
[2020-06-24] MEDS: NICOTINE 14MG/24HR PATCH TRANSDERM SCH (08:12)
[2020-06-24] MEDS: FOLIC ACID 1 MG TAB PO SCH (08:13)
[2020-06-24] MEDS: THIAMINE 100 MG TAB PO SCH (08:13)
[2020-06-24] MEDS: chlordiazePOXIDE 25 MG CAP PO SCH ×2 (08:13→21:16)
--- NOTE | 2020-06-24 10:24 | P.PN ---
Progress Note - Text Progress Note Date: 06/24/20 Interval History: Patient was seen resting in bed and was directable and agreeable to speak with mortgage underwriter in the office. Patient reports that he is feeling slightly better but had difficulty sleeping last night due to his roommates. He expresses that he feels like he is not really bipolar but just a very anxious individual. He is currently not reporting any suicidal or homicidal ideation, intention, and/or plan. He is not reporting any auditory or visual hallucinations. He does continue to express excessive racing and worried thoughts. He has been managed for alcohol withdrawal over the weekend. Currently, the patient does express that he did well on Lexapro in the past. He is also tried Zyprexa in the past which has helped him with his racing thoughts. He is agreeable to start a trial of these medications. Patient expresses that he has a court appearance this week and that he is likely going to group home. He does express a diseases desire to go to group home so that he may take time to focus on himself. Mental Status Exam: General Appearance: Patient appears to be stated age is alert, directable, and cooperative. Patient has hatch hair, is of normal build. Fair hygiene and grooming. Behavior: Patient is calmly seated without any agitated behavior. Speech: Patient's speech is fluent and nonpressured. Mood/Affect: Mood is improving mildly, affect is congruent and constricted. Suicidality/Homicidality: Patient is not reporting any suicidal or homicidal ideation, intention, and/or plan. Perceptions: Patient denies any auditory or visualizations. Though content/process: There is no evidence of any delusional thought content and thought process is linear and goal-directed. Memory and concentration: AOX3, grossly intact for the purposes of this session Judgment and insight: Improving mildly Assessment Bipolar disorder, type II, recent episode hypomanic Alcohol use disorder Methamphetamine use disorder Nicotine dependence Plan: -Patient continues to meet criteria for inpatient psychiatric admission for symptom stabilization and safety. Patient has signed adult voluntary form and medication consent and was placed in patient's chart. -Medications: We will begin taper for alcohol withdrawal. We will decrease Librium to 25 mg by mouth twice a day. We will start Lexapro 10 mg by mouth at bedtime for depression/anxiety We will start Zyprexa 5 mg by mouth at bedtime for management of bipolar depression -When necessary Ativan and Haldol for agitation/aggression. -NRT - nicotine patch -SW on board for discharge planning. Encouraged the patient to participate in milieu.
[2020-06-24] MEDS: OLANZapine 5 MG TAB PO SCH (21:16)
[2020-06-24] MEDS: ESCITALOPRAM 10 MG TAB PO SCH (21:16)
[2020-06-25] MEDS: LORazepam 1 MG TAB PO PRN ×3 (06:49→16:56)
[2020-06-25] MEDS: THIAMINE 100 MG TAB PO SCH (08:53)
[2020-06-25] MEDS: chlordiazePOXIDE 25 MG CAP PO SCH (08:53)
[2020-06-25] MEDS: FOLIC ACID 1 MG TAB PO SCH (08:53)
[2020-06-25] MEDS: NICOTINE 14MG/24HR PATCH TRANSDERM SCH ×2 (08:54→14:41)
--- NOTE | 2020-06-25 10:24 | P.PN ---
Progress Note - Text Progress Note Date: 06/25/20 Interval History: Patient was seen resting in bed and was directable and agreeable to speak with screen writer in the office. Patient reports that he is feeling slightly better today. He claims that he has improved significantly with regards to his alcohol withdrawal symptoms. He is claiming that his anxiety and mood have been gradually improving. He states that he is feeling more drowsy this morning after taking the Librium and asked for it to be reduced even further. He claims that he has not been going to any groups as he feels that they are not helpful for him. He is currently not reporting any suicidal or homicidal ideation, intention, and/or plan. He is not reporting any auditory or visual hallucinations. He does continue to express excessive racing and worried thoughts. He states that he was able to sleep better last night with the Zyprexa. Mental Status Exam: General Appearance: Patient appears to be stated age is alert, directable, and cooperative. Patient has hatch hair, is of normal build. Fair hygiene and grooming. Behavior: Patient is calmly seated without any agitated behavior. Speech: Patient's speech is fluent and nonpressured. Mood/Affect: Mood is improving mildly, affect is congruent and constricted. Suicidality/Homicidality: Patient is not reporting any suicidal or homicidal ideation, intention, and/or plan. Perceptions: Patient denies any auditory or visualizations. Though content/process: There is no evidence of any delusional thought content and thought process is linear and goal-directed. Memory and concentration: AOX3, grossly intact for the purposes of this session Judgment and insight: Poor, Improving mildly Assessment Bipolar disorder, type II, recent episode hypomanic Alcohol use disorder Methamphetamine use disorder Nicotine dependence Plan: -Patient continues to meet criteria for inpatient psychiatric admission for symptom stabilization and safety. Patient has signed adult voluntary form and medication consent and was placed in patient's chart. -Medications: Will decrease Librium to 25 mg by mouth nightly, continue with Lexapro 10 mg by mouth at bedtime for depression/anxiety, continue with Zyprexa 5 mg by mouth at bedtime for management of bipolar depression. -When necessary Ativan and Haldol for agitation/aggression. -NRT - nicotine patch -SW on board for discharge planning. Encouraged the patient to participate in milieu.
[2020-06-25] MEDS ORDERED: LORazepam 1 MG TAB PO PRN (13:47)
[2020-06-25] MEDS ORDERED: hydrOXYzine pamoate 25 MG CAP PO PRN (13:49)
[2020-06-25] MEDS: OLANZapine 5 MG TAB PO SCH (20:06)
[2020-06-25] MEDS: ESCITALOPRAM 10 MG TAB PO SCH (20:07)
[2020-06-25] MEDS ORDERED: chlordiazePOXIDE 25 MG CAP PO ONE (21:00)
[2020-06-26] MEDS: LORazepam 1 MG TAB PO PRN ×2 (05:26→17:02)
[2020-06-26] MEDS: FOLIC ACID 1 MG TAB PO SCH (08:24)
[2020-06-26] MEDS: THIAMINE 100 MG TAB PO SCH (08:24)
[2020-06-26] MEDS: NICOTINE 14MG/24HR PATCH TRANSDERM SCH (08:24)
[2020-06-26] MEDS ORDERED: hydrOXYzine pamoate 25 MG CAP PO PRN (09:37)
--- NOTE | 2020-06-26 10:01 | P.PN ---
Progress Note - Text Progress Note Date: 06/26/20 Interval History: Patient was seen resting in bed and was directable and agreeable to speak with tag writer in the office. Currently the patient's primary concern is his elevated anxiety and racing thoughts which she attributes to his ongoing psychosocial stressors. He states that his court has been adjourned as the placing judge felt it was inappropriate to have this year and while he is currently being treated for mental health and inpatient psychiatric setting. The patient is not endorsing any suicidal or homicidal ideation, intention, and/or plan. He is not reporting any auditory or visual hallucinations. He is been adherent with his medications and is not reporting any significant side effects at this time. The patient states that he would likely be going to his parents home upon discharge. He states that he will sign a release of information for her treatment team. Mental Status Exam: General Appearance: Patient appears to be stated age is alert, directable, and cooperative. Patient has hatch hair, is of normal build. Fair hygiene and grooming. Behavior: Patient is calmly seated without any agitated behavior. Speech: Patient's speech is fluent and nonpressured. Mood/Affect: Mood is improving mildly, affect is congruent and constricted. Suicidality/Homicidality: Patient is not reporting any suicidal or homicidal ideation, intention, and/or plan. Perceptions: Patient denies any auditory or visualizations. Though content/process: There is no evidence of any delusional thought content and thought process is linear and goal-directed. Memory and concentration: AOX3, grossly intact for the purposes of this session Judgment and insight: Improving mildly Assessment Bipolar disorder, type II, recent episode hypomanic Alcohol use disorder Methamphetamine use disorder Nicotine dependence Plan: -Patient continues to meet criteria for inpatient psychiatric admission for symptom stabilization and safety. Patient has signed adult voluntary form and medication consent and was placed in patient's chart. -Medications: Increase Lexapro to 20 mg by mouth at bedtime for depression/anxiety Increase Vistaril to 50 mg by mouth 3 times a day when necessary for anxiety Increase Zyprexa to 10 mg by mouth at bedtime for bipolar depression -When necessary Ativan and Haldol for agitation/aggression. -NRT - nicotine patch -SW on board for discharge planning. Encouraged the patient to participate in milieu.
[2020-06-26] MEDS ORDERED: OLANZapine 5 MG TAB PO SCH (21:00)
[2020-06-26] MEDS ORDERED: ESCITALOPRAM 10 MG TAB PO SCH (21:00)
[2020-06-27 06:38] VITALS: RESP 18; TEMP 97.7
[2020-06-27] MEDS: THIAMINE 100 MG TAB PO SCH (08:31)
[2020-06-27] MEDS: NICOTINE 14MG/24HR PATCH TRANSDERM SCH (08:31)
[2020-06-27] MEDS: FOLIC ACID 1 MG TAB PO SCH (08:31)
[2020-06-27] MEDS: LORazepam 1 MG TAB PO PRN (08:34)
[2020-06-27 08:36] VITALS: BP 108/80; PULSE 111
--- NOTE | 2020-06-27 10:11 | P.DS ---
Providers Date of admission: 06/22/20 02:22 Expected date of discharge: 06/27/20 Attending physician: Chaz Villanueva MD Consults: 06/22/20 03:17 Consult Physician Routine Consulting Provider: Ira Huggins Consult Reason/Comments: For H & P for Medical Follow Up Do you want consulting provider notified?: Yes Primary care physician: Stated None - Discharge Diagnosis(es) (1) Bipolar 2 disorder Current Visit: Yes Status: Acute Priority: High (2) Alcohol use disorder, moderate, dependence Current Visit: Yes Status: Acute Priority: Medium (3) Methamphetamine use Current Visit: Yes Status: Chronic Priority: Medium (4) Nicotine dependence Current Visit: No Status: Chronic Priority: Medium Hospital Course: Admission HPI: Initial psychiatric evaluation was completed by Dr. Smiley on 06/22/2020 who wrote: "He is a 49-year-old single male admitted psychiatric unit voluntarily. HISTORY OF PRESENT ILLNESS: He presented to the emergency center voluntarily with complaints of suicidal ideation and a plan to drink himself to . He stated that he is been distressed and overwhelmed because he anticipates going [facility]. He perseverated on not being able to cope with incarcerated for an extended period of time. He talked about how he would rather or as he put it "put a bullet through my head" before he would go to [facility]. Apparently he received his third driving while intoxicated citation this weeks; his 3rd in the last 3 months. He was incarcerated on Wednesday prior to this admission and released on toomsuba on "Wednesday or Wednesday." He has a hearing scheduled for 06/25/2020 and fully anticipates that she would be incarcerated. He talked about drinking daily to intoxication usually beer but sometimes whis dey. He was evasive about the amount but suggested that when he drank beer would be at least "case" or a "fifth" whiskey. He denied recent use of other drugs to get high, help him sleep or changes mood. However, his UDS was positive for amphetamine and methamphetamine. His breath alcohol level on presentation before meals was 0.061. He described a long history of alcohol and drug use problems beginning in late adolescent. He received his first driving while intoxicated citation when he was "16 or 17" years old. He controlled his alcohol and drug use "for many years" until he relapsed when he was approximately 45 years old while he was living in [place]. He attributed the relapse to undiagnosed psychiatric illness and perseverated about having diagnosis of ADHD, anxiety disorder, depression and bipolar illness. He talked about feeling "on top of the world" for many years and when he turned 45 "crashing". She discovered that methamphetamine created the same sense of euphoria that the experience before the abrupt change in his mood. He has been using methamphetamine since. 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 He was also convinced that he was likely to be incarcerated. He was initially preservative on his inability to cope with the extended incarceration. The patient was initially started on Librium and placed on CIWA protocl for alcohol withdrawal. When evaluated later during the course of the hospitalization, the patient was started on Lexapro and Zyprexa for management of bipolar depression. Over the course of the hospitalization, the patient displayed improvements in coping skills, mood lability, and decreased suicidal ideation. The patient would occasionally present as irritable but was always redirectable. He remained primarily athletic to himself in his room stating that he preferred to meditate to deal with his anxiety rather than engage in milieu activities. The patient's court was adjourned as the manager creative felt it was inappropriate for him to have his hearing while being treated for mental health and inpatient psychiatric unit. Gradually the patient continued to display an improvement. On day of discharge, the patient is not endorsing any suicidal or homicidal ideation, intention, and/or plan. He is not reporting any access to firearms or other weapons. He is reporting no auditory or visual hallucinations. He is denying any paranoia or delusions. He has been in adherent with his medications and appears to be tolerating them well and is not endorsing any significant side effects. The patient does have a significant history of substance abuse, however, was counseled on abstaining from all substances including alcohol, marijuana, and methamphetamines. The patient was offered however declined inpatient substance- abuse rehab. Patient was counseled on the medications and need for regular compliance. Patient was uncertain of where he would be discharged to, but sta madison that he would likely stay with his mother. Mental status exam: General Appearance: Patient appears to be stated age is alert, pleasant, and cooperative. Patient is in no acute distress and has fair hygiene and grooming Behavior: Patient is calmly seated without any agitated behavior. Speech: Patient's speech is fluent and nonpressured. Mood/Affect: Patient reports their mood is "much better", affect is congruent and euthymic. Suicidality/Homicidality: Patient denies having any suicidal or homicidal ideation intent or plan. Perceptions: Patient denies any auditory or visual hallucinations. Though content/process: There is no evidence of any delusional thought content and thought process is linear and goal-directed. Memory and concentration: AOX3, grossly intact for the purposes of this session. Can spell "WORLD" backwards correctly. Judgment and insight: Improved with guarded prognosis Impression: Bipolar disorder, type II, recent episode hypomanic Alcohol use disorder Methamphetamine use disorder Nicotine dependence Plan: -Continue with discharge today as patient has improved and stabilized psychiatrically and is not currently an imminent threat to himself and/or ot hers. Patient will remain at chronically elevated risk for harm to self and/or others due to his impulsivity and polysubstance abuse. -Continue medications: Lexapro 20 mg by mouth at bedtime for depression/anxiety Hydroxyzine 50 mg 3 times a day when necessary for anxiety Zyprexa 10 mg by mouth at bedtime for mood stability/bipolar depression Nicotine patches for nicotine dependence -Patient was counseled on the need for medication compliance and appropriate follow-up at mental health and also primary care for medical issues. Patient verbalized understanding and agreed. -Social work to arrange for and conduct family meeting to ensure safety upon discharge and answer any questions/concerns. Social work also to arrange for patients follow up appointments with [facility] for psychiatric care along with follow up with primary care provider. -Patient counseled on abstaining from recreational drugs and marijuana and alcohol. Was informed/educated on the adverse effects on their physical and men jone health. Patient verbally agreed and understood. Patient was offered substance abuse treatment however declined at this time. -Patient was instructed to return to the hospital or seek immediate medical care if their psychiatric or medical symptoms do worsen or reoccur. -Psychoeducation and supportive therapy provided to patient. Risks and benefits of pharmacological treatment versus the risks and benefits of nontreatment weight and discussed. Informed consent discussion held. Common side effects of psychotropics discussed such as, but not limited to headache, GI disturbance, sexual dysfunction, movement disorders, sedation, and orthostatic hypotension. Life threatening and blackbox warnings of prescribed medications also discussed. Potential risks of operating a vehicle or heavy machinery discussed with patient at length. Advised on importance of compliance and a reliable and responsible manner. Patient advised to review FDA consumer labeling of all medications prior to taking. Patient verbalized understanding of potential risks, and agrees with current treatment plan. Patient advised to medically contact physician/emergency personnel if any acute changes in condition occur. Vital Signs Temp 97.7 F 06/27/20 06:14 Pulse 111 H 06/27/20 08:36 Resp 18 06/27/20 06:14 BP 108/80 06/27/20 08:36 Pulse Ox 98 06/22/20 03:33 Laboratory Results WBC 7.7 k/uL (3.8-10.6) 06/22/20 07:55 RBC 5.11 m/uL (4.30-5.90) 06/22/20 07:55 Hgb 16.0 gm/dL (13.0-17.5) 06/22/20 07:55 Hct 46.2 % (39.0-53.0) 06/22/20 07:55 MCV 90.5 fL (80.0-100.0) 06/22/20 07:55 MCH 31.3 pg (25.0-35.0) 06/22/20 07:55 MCHC 34.6 g/dL (31.0-37.0) 06/22/20 07:55 RDW 11.8 % (11.5-15.5) 06/22/20 07:55 Plt Count 334 k/uL (150-450) 06/22/20 07:55 MPV 6.5 06/22/20 07:55 Neutrophils % 62 % 06/22/20 07:55 Lymphocytes % 29 % 06/22/20 07:55 Monocytes % 4 % 06/22/20 07:55 Eosinophils % 3 % 06/22/20 07:55 Basophils % 1 % 06/22/20 07:55 Neutrophils # 4.8 k/uL (1.3-7.7) 06/22/20 07:55 Lymphocytes # 2.2 k/uL (1.0-4.8) 06/22/20 07:55 Monocytes # 0.3 k/uL (0-1.0) 06/22/20 07:55 Eosinophils # 0.2 k/uL (0-0.7) 06/22/20 07:55 Basophils # 0.1 k/uL (0-0.2) 06/22/20 07:55 Sodium 137 mmol/L (137-145) 06/22/20 07:55 Potassium 4.9 mmol/L (3.5-5.1) 06/22/20 07:55 Chloride 107 mmol/L (98-107) 06/22/20 07:55 Carbon Dioxide 24 mmol/L (22-30) 06/22/20 07:55 Anion Gap 6 mmol/L 06/22/20 07:55 BUN 14 mg/dL (9-20) 06/22/20 07:55 Creatinine 0.99 mg/dL (0.66-1.25) 06/22/20 07:55 Est GFR (CKD-EPI)AfAm >90 (>60 ml/min/1.73 sqM) 06/22/20 07:55 Est GFR (CKD-EPI)NonAf 89 (>60 ml/min/1.73 sqM) 06/22/20 07:55 Glucose 111 mg/dL (74-99) H 06/22/20 07:[address] Glu mg/dL 111 06/22/20 07:55 Hemoglobin A1c 5.5 % (4.0-6.0) 06/22/20 07:55 Calcium 9.3 mg/dL (8.4-10.2) 06/22/20 07:55 Total Bilirubin 0.5 mg/dL (0.2-1.3) 06/22/20 07:55 Conjugated Bilirubin 0.0 mg/dL (0.0-0.3) 06/22/20 07:55 Unconjugated Bilirubin 0.2 mg/dL (0.0-1.1) 06/22/20 07:55 Delta Bilirubin 0.3 mg/dL (0.0-0.2) H 06/22/20 07:55 AST 31 U/L (17-59) 06/22/20 07:55 ALT 26 U/L (4-49) 06/22/20 07:55 Alkaline Phosphatase 97 U/L (38-126) 06/22/20 07:55 Total Protein 6.9 g/dL (6.3-8.2) 06/22/20 07:55 Albumin 4.2 g/dL (3.5-5.0) 06/22/20 07:55 Triglycerides 132 mg/dL (<150) 06/22/20 07:55 Cholesterol 242 mg/dL (<200) H 06/22/20 07:55 LDL Cholesterol, Calc 153 mg/dL (0-99) H 06/22/20 07:55 HDL Cholesterol 63 mg/dL (40-60) H 06/22/20 07:55 TSH 0.853 mIU/L (0.465-4.680) 06/22/20 07:55 Urine Color Yellow 06/22/20 02:14 Urine Appearance Clear (Clear) 06/22/20 02:14 Urine pH 5.5 (5.0-8.0) 06/22/20 02:14 Ur Specific Maribel 1.011 (1.001-1.035) 06/22/20 02:14 Urine Protein Negative (Negative) 06/22/20 02:14 Urine Glucose (UA) Negative (Negative) 06/22/20 02:14 Urine Ketones Negative (Negative) 06/22/20 02:14 Urine Blood Negative (Negative) 06/22/20 02:14 Urine Nitrite Negative (Negative) 06/22/20 02:14 Urine Bilirubin Negative (Negative) 06/22/20 02:14 Urine Urobilinogen <2.0 mg/dL (<2.0) 06/22/20 02:14 Ur Leukocyte Esterase Negative (Negative) 06/22/20 02:14 Urine Opiates Screen Not Detected (NotDetected) 06/22/20 02:25 Ur Oxycodone Screen Not Detected (NotDetected) 06/22/20 02:25 Urine Methadone Screen Not Detected (NotDetected) 06/22/20 02:25 Ur Propoxyphene Screen Not Detected (NotDetected) 06/22/20 02:25 Ur Barbiturates Screen Not Detected (NotDetected) 06/22/20 02:25 U Tricyclic Antidepress Not Detected (NotDetected) 06/22/20 02:25 Ur Phencyclidine Scrn Not Detected (NotDetected) 06/22/20 02:25 Ur Amphetamines Screen Detected (NotDetected) H 06/22/20 02:25 U Methamphetamines Scrn Detected (NotDetected) H 06/22/20 02:25 U Benzodiazepines Scrn Not Detected (NotDetected) 06/22/20 02:25 Urine Cocaine Screen Not Detected (NotDetected) 06/22/20 02:25 U Marijuana (THC) Screen Not Detected (NotDetected) 06/22/20 02:25 Coronavirus (PCR) Not Detected (Not Detectd) 06/22/20 02:26 Allergies Allergy/AdvReac Type Severity Reaction Status Date / Time No Known Allergies Allergy Verified 06/22/20 03:38 Patient Condition at Discharge: Stable Plan - Discharge Summary Discharge Rx Participant: Yes New Discharge Prescriptions: New Folic Acid 1 mg PO DAILY 30 Days tab Nicotine 14Mg/24Hr Patch [Habitrol] 1 patch TRANSDERM DAILY 30 Days patch Escitalopram [Lexapro] 20 mg PO HS 30 Days tab hydrOXYzine pamoate [Vistaril] 50 mg PO TID PRN 30 Days cap PRN Reason: Anxiety Thiamine [Vitamin B-1] 100 mg PO DAILY 30 Days tab OLANZapine [ZyPREXA] 10 mg PO HS 30 Days tab Discontinued Folic Acid 1 mg PO DAILY 30 Days tab Multivitamins, Thera [Multivitamin (formulary)] 1 each PO DAILY 30 Days tab Thiamine [Vitamin B-1] 100 mg PO DAILY 30 Days tab traZODone HCL [Desyrel] 100 mg PO HS 14 Days tab Escitalopram [Lexapro] 10 mg PO DAILY 14 Days tab OLANZapine [ZyPREXA] 5 mg PO TID 14 Days tab Discharge Medication List Escitalopram [Lexapro] 20 mg PO HS 30 Days tab 06/27/20 [Rx] Folic Acid 1 mg PO DAILY 30 Days tab 06/27/20 [Rx] Nicotine 14Mg/24Hr Patch [Habitrol] 1 patch TRANSDERM DAILY 30 Days patch [Rx] OLANZapine [ZyPREXA] 10 mg PO HS 30 Days tab 06/27/20 [Rx] Thiamine [Vitamin B-1] 100 mg PO DAILY 30 Days tab 06/27/20 [Rx] hydrOXYzine pamoate [Vistaril] 50 mg PO TID PRN 30 Days cap 06/27/20 [Rx] Follow up Appointment(s)/Referral(s): [facility] [place] [Other] - 1 Week (Zoom information [phone] dial in 07/02/2020 @ 13:30 ) [facility] [Outside] - 06/28/20 3:00 pm (06-28-20 @ 3:00 with Jailene Morgan in the [place] office 07-04-20 @ 2:00 with KIMBERLYN Marroquin in the [place] Office (future appts with Dina Marroquin will be in the [place] office)) [facility] Week Activity/Diet/Wound Care/Special Instructions: Activity and diet as tolerated. Avoid the use of street drugs and alcohol. Take all medications as prescribed. When you are in need of refills on your medications please contact your medical provider and/or outpatient psychiatrist to have this done. Please go to scheduled outpatient appointment for aftercare treatment. If symptoms return or become worse, call the crisis line at and/or go to the nearest emergency room for evaluation.
== END 2020-06-27 13:45 | disposition home or self-care (01) | DRG 885 ==
LOC: EC 23:42 → 3MHU 06-22 02:22
PROVIDERS: ADMIT Psychiatry & Neurology Psychiatry; ATTEND Psychiatry & Neurology Psychiatry
DX: F31.81 Bipolar II disorder (principal); F10.239 Alcohol dependence with withdrawal, unspecified; F23 Brief psychotic disorder; R45.851 Suicidal ideations; F31.30 Bipolar disorder, current episode depressed, mild or moderate severity, unspecified; F15.10 Other stimulant abuse, uncomplicated; F17.200 Nicotine dependence, unspecified, uncomplicated; F41.9 Anxiety disorder, unspecified; Z79.899 Other long term (current) drug therapy; Z20.822 Contact with and (suspected) exposure to COVID-19
CPT/HCPCS: 80053; 80061; 80306; 81003; 82075; 82248; 83036; 84443; 85025; 87635; 99285

== ENCOUNTER 2022-10-16 15:06 | Emergency (ER) | payer OTHER ==
[2022-10-16 15:26] VITALS: PULSE 75; RESP 16
[2022-10-16] MEDS ORDERED: ACETAMINOPHEN TAB 500 MG TAB PO STA (15:39)
[2022-10-16] MEDS ORDERED: IBUPROFEN 800 MG TAB PO STA (15:39)
--- NOTE | 2022-10-16 15:40 | ED ---
Male Urogenital HPI - General Chief complaint: Urogenital Stated complaint: Testicle Pain Time Seen by Provider: 10/16/22 15:33 Source: patient, RN notes reviewed, old records reviewed Mode of arrival: ambulatory Limitations: no limitations - History of Present Illness Initial comments: This is a 52-year-old male to the emergency department for evaluation patient presents today for severe groin pain right pain and swelling with dysuria and increased urination. No abdominal pain generalized body aches and pains and noticed fever. Patient went to urgent care prior to arrival and presents from urgent care MD Complaint: testicle pain, testicle swelling, other (Fever) -: days(s) Location: penis, left testicle Radiation: none Severity: moderate Severity scale (1-10): 7 Quality: burning, sharp Consistency: constant Improves with: none Worsens with: urination Reports: fever - Related Data Previous Rx's Medication Instructions Recorded Escitalopram [Lexapro] 20 mg PO HS 30 Days tab 06/27/20 Folic Acid 1 mg PO DAILY 30 Days tab 06/27/20 Nicotine 14Mg/24Hr Patch [Habitrol] 1 patch TRANSDERM DAILY 30 Days 06/27/20 patch OLANZapine [ZyPREXA] 10 mg PO HS 30 Days tab 06/27/20 Thiamine [Vitamin B-1] 100 mg PO DAILY 30 Days tab 06/27/20 hydrOXYzine pamoate [Vistaril] 50 mg PO TID PRN 30 Days cap 06/27/20 Ciprofloxacin HCl [Cipro] 500 mg PO Q12HR #28 tablet 10/16/22 Allergies Allergy/AdvReac Type Severity Reaction Status Date / Time No Known Allergies Allergy Verified 10/16/22 15:20 Review of Systems ROS Statement: Those systems with pertinent positive or pertinent negative responses have been documented in the HPI. ROS Other: All systems not noted in ROS Statement are negative. Past Medical History Past Medical History: No Reported History Additional Past Medical History / Comment(s): depression , former ETOH, previous heroin use History of Any Multi-Drug Resistant Organisms: None Reported Past Surgical History: No Surgical Hx Reported Past Anesthesia/Blood Transfusion Reactions: No Reported Reaction Past Psychological History: Anxiety, Depression Smoking Status: Former smoker Past Alcohol Use History: None Reported Past Drug Use History: None Reported - Past Family History Father Family Medical History: Chest Pain / Angina General Exam Limitations: no limitations General appearance: alert, in no apparent distress Head exam: Present: atraumatic, normocephalic, normal inspection Eye exam: Present: normal appearance, PERRL, EOMI. Absent: scleral icterus, conjunctival injection, periorbital swelling ENT exam: Present: normal exam, mucous membranes moist Neck exam: Present: normal inspection. Absent: tenderness, meningismus, lymphadenopathy Respiratory exam: Present: normal lung sounds bilaterally. Absent: respiratory distress, wheezes, rales, rhonchi, stridor Cardiovascular Exam: Present: regular rate, normal rhythm, normal heart sounds. Absent: systolic murmur, diastolic murmur, rubs, gallop, clicks GI/Abdominal exam: Present: soft, normal bowel sounds. Absent: distended, tenderness, guarding, rebound, rigid Extremities exam: Present: normal inspection, full ROM, normal capillary refill. Absent: tenderness, pedal edema, joint swelling, calf tenderness Back exam: Present: normal inspection Neurological exam: Present: alert, oriented X3, CN II-XII intact Psychiatric exam: Present: normal affect, normal mood Skin exam: Present: warm, dry, intact, normal color. Absent: rash Course Vital Signs 10/16/22 10/16/22 15:20 17:13 Temperature 100.5 F H 98.7 F Pulse Rate 75 75 Respiratory 16 16 Rate Blood Pressure 147/91 135/78 O2 Sat by Pulse 98 98 Oximetry - Reevaluation(s) Reevaluation #1: 10/16/22 23:16 Medical records reviewed Reevaluation #2: 10/16/22 23:16 Symptoms improved here in the ER Reevaluation #3: 10/16/22 23:16 Patient informed results questions answered Reevaluation #4: 10/16/22 23:16 Was pt. sent in by a medical professional or institution? @ -no Did you speak to anyone other than the patient for history? @ -no Did you review nursing and triage notes? @ -agree Were old charts reviewed? @ -no Differential Diagnosis? @ -prior EKG interpreted by me (3pts min.)? @ -yes X-rays interpreted by me (1pt min.)? @ -yes CT interpreted by me (1pt min.)? @ -no U/S interpreted by me (1pt. min.)? @ -no What testing was considered but not performed? (CT, X-rays, U/S, labs)? Why? @ -no What meds were considered but not given? Why? @ -no Did you discuss the management of the patient with other professionals? @ -no Did you reconcile home meds? @ -no Was smoking cessation discussed for >3mins.? @ -no Was critical care preformed (if so, how long)? @ -no Were there social determinants of health that impacted care today? How? (Homelessness, low income, unemployed, alcoholism, drug addiction, transportation, low edu. Level, literacy, decrease access to med. care, retirement, rehab)? @ -no Was there de-escalation of care discussed even if they declined? (Discuss DNR or withdrawal of care, Hospice)? @ -no What co-morbidities impacted this encounter? (DM, HTN, Smoking, COPD, CAD, Cancer, CVA, Hep., AIDS, mental health diagnosis, sleep apnea, morbid obesity)? @ -none Was patient admitted / discharged? @ -dc Undiagnosed new problem with uncertain prognosis? @ -no Drug Therapy requiring intensive monitoring for toxicity (Heparin, Nitro, Insulin, Cardizem)? @ -no Were any procedures done? @ -no Diagnosis/symptom? @ -Orchitis,UTI Acute, or Chronic, or Acute on Chronic? @ -acute Uncomplicated (without systemic symptoms) or Complicated (systemic symptoms)? @ -uncomplicated Side effects of treatment? @ -no Exacerbation, Progression, or Severe Exacerbation] @ -no Poses a threat to life or bodily function? @ -no Reevaluation #5: 10/16/22 23:16 Differential Fever: Pneumonia, viral URI, endocarditis, myocarditis, pericarditis, otitis, sinusi tis, peritonsillar Abscess, retropharyngeal Abscess, epiglottitis, peritonitis, appendicitis, Avis cystitis, diverticulitis, hepatitis, colitis, UTI, PID, TOA, pyelonephritis, prostatitis, epididymitis, meningitis, encephalitis, pulmonary embolism, CVA, thyroid storm, pancreatitis, adrenal crisis, cavernous sinus thrombosis, this is not meant to be an all-inclusive list. Medical Decision Making - Medical Decision Making 52 male DF for evaluation of groin pain scrotal pain and tenderness positive for otitis patient placed on antibiotics and can be discharged home - Lab Data Lab Results 10/16/22 10/16/22 Range/Units 15:47 17:06 Urine Color Colorless Urine Appearance Clear (Clear) Urine pH 5.5 (5.0-8.0) Ur Specific [place] 1.004 (1.001-1.035) Urine Protein Negative (Negative) Urine Glucose (UA) Trace H (Negative) Urine Ketones Negative (Negative) Urine Blood Negative (Negative) Urine Nitrite Negative (Negative) Urine Bilirubin Negative (Negative) Urine Urobilinogen <2.0 (<2.0) mg/dL Ur Leukocyte Esterase Negative (Negative) Influenza Type A (PCR) Not Detected (Not Detectd) Influenza Type B (PCR) Not Detected (Not Detectd) RSV (PCR) Not Detected (Not Detectd) SARS-CoV-2 (PCR) Not Detected (Not Detectd) Disposition Clinical Impression: UTI (urinary tract infection), Orchitis and epididymitis Disposition: HOME SELF-CARE Condition: Good Instructions (If sedation given, give patient instructions): Epididymo-Orchitis (ED), Urinary Tract Infection in Men (ED), Testicle Pain (ED), Orchitis (ED) Prescriptions: Ciprofloxacin HCl [Cipro] 500 mg PO Q12HR #28 tablet Is patient prescribed a controlled substance at d/c from ED?: No Referrals: Tesfaye Gonzalez MD [STAFF PHYSICIAN] - 1-2 days
[2022-10-16 16:00] LABS: Appearance,Urine Clear (Clear); Bilirubin,Urine Negative (Negative); Blood,Urine Negative (Negative); Color,Urine Colorless; Glucose,Urine (UA) Trace (Negative); Ketones,Urine Negative (Negative); Leukocyte Esterase,Urine Negative (Negative); Nitrite,Urine Negative (Negative); PH, Urine 5.5 (5.0-8.0); Protein,Urine Negative (Negative); Specific Gravity,Urine 1.004 (1.001-1.035); Urobilinogen,Urine <2.0 mg/dL (<2.0)
--- NOTE | 2022-10-16 16:11 | US ---
EXAMINATION TYPE: US scrotum with doppler. TECHNIQUE: Grayscale and color Doppler Duplex imaging performed of the scrotum. DATE OF EXAM: 10/16/2022 COMPARISON: NONE CLINICAL INDICATION: Male, 52 years old with history of pain/asymmetrical; EXAM MEASUREMENTS: TESTICLES: Right Testicle: 4.4 x 2.4 x 3.2 cm Left Testicle: 4.1 x 2.7 x 2.9 cm Doppler performed to assess for testicular vascularity; good bilateral color flow and waveforms are s een. There is no evidence of testicular torsion. EPIDIDYMIS HEAD: Right Epididymis: 1.2 x 0.8 cm Left Epididymis: 2.3 x 1.2 cm Enlarged left epididymis with increased vascular flow consistent with epididymitis. Presence of hydroceles: small amount of fluid around right testicle. Large fluid collection around l eft testicle measuring 5.2 x 2.8 cm. IMPRESSION: 1. Correlate for left-sided epididymitis with reactive left-sided hydrocele. 2. Trace hydrocele on the right. No sonographic evidence for testicular torsion.
[2022-10-16] MEDS ORDERED: CIPROFLOXACIN HCL 500 MG TAB PO STA (16:56)
[2022-10-16 17:14] VITALS: BP 135/78; TEMP 98.7
== END 2022-10-16 17:16 | disposition home or self-care (01) ==
LOC: EC 15:06
DX: N45.3 Epididymo-orchitis (principal); N39.0 Urinary tract infection, site not specified; Z20.822 Contact with and (suspected) exposure to COVID-19; Z87.891 Personal history of nicotine dependence
CPT/HCPCS: 76870; 81003; 87636; 93975; 99285